=== PATIENT | female | born 1950 | race Caucasian/White ===

== ENCOUNTER → 2018-10-06 09:37 | Outpatient (CLI) | payer MEDICARE, OTHER, SELFPAY ==
[2018-10-06 10:11] LABS: Add Manual Diff / Slide Review NO; Basophils Absolute Auto 100 /uL (0-100); Basophils Percent Auto 0.6 % (0-2); Eosinophils Absolute Auto 400 /uL (0-450); Eosinophils Percent Auto 3.7 % (2-4); Hematocrit 40.5 % (36-46); Hemoglobin 14.1 g/dL (12.0-16.0); Lymphocytes Absolute Auto 3900 /uL (1100-4500); Lymphocytes Percent Auto 39.3 % (25-40); Mean Corpuscular HGB Conc 34.8 % (30-36); Mean Corpuscular Hemoglobin 31.2 PG (26-34); Mean Corpuscular Volume 89.8 fL (80-100); Monocytes Absolute Auto 600 /uL (0-900); Monocytes Percent Auto 5.9 % (3-14); Neutrophils Absolute Auto 5000 /uL (1500-7000); Neutrophils Percent Auto 50.5 % (50-75); Platelet Count 342 X10^3/uL (150-400); Red Blood Cell Count 4.51 X10^6/uL (4.0-5.2); Red Cell Distribution Width 13.9 % (11.6-14.8); White Blood Cell Count 9.9 X10^3/uL (4.5-11.0)
[2018-10-06 10:21] LABS: Hemoglobin A1C% w Est Avg Glu 6.4 % (4.0-6.0)
[2018-10-06 10:52] LABS: Alanine Aminotransferase 12 IU/L (9-52); Albumin Globulin Ratio 1.2 (1.0-2.8); Alkaline Phosphatase 76 U/L (38-126); Aspartate Aminotransferase 18 IU/L (14-36); BUN Creatinine Ratio 25.8 (6-22); Bilirubin Total 0.5 mg/dL (0.2-1.3); Blood Urea Nitrogen 31 mg/dL (7-17); Calcium 10.3 mg/dL (8.4-10.2); Carbon Dioxide 25 mmol/L (22-32); Chloride 103 mmol/L (98-107); Estimated Glomerular Filt Rate 45.1 mL/min (>60); Globulin 3.3 g/dL (1.7-4.1); Glucose 131 mg/dL (80-110); HEMOLYSIS < 15 (0-50); Sodium 139 mmol/L (137-145); Total Protein 7.3 g/dL (6.3-8.2)
== END ==
PROVIDERS: Visit Provider Physician Assistant
DX: E11.9 Type 2 diabetes mellitus without complications (principal); I10 Essential (primary) hypertension
CPT/HCPCS: 36415; 80053; 83036; 85025

== ENCOUNTER 2018-11-03 18:29 | Emergency (ER) | payer MEDICARE, OTHER, SELFPAY ==
[2018-11-03 18:55] VITALS: BP 172/102; PULSE 94; RESP 18; TEMP 36.3; O2SAT 99
--- NOTE | 2018-11-03 18:59 | ED.WEAKNESS ---
HPI - Weakness General Chief complaint: Weakness Stated complaint: VERY SLOW COLD AND HOT HASN'T HAD MEDICATION Time Seen by Provider: 11/03/18 18:44 Source: patient and family Mode of arrival: ambulatory Limitations: no limitations History of Present Illness HPI Narrative: 67-year-old female with history of hypertension and type 2 diabetes presents with her and a chief complaint of generalized weakness for the past few days. She denies any headache, blurred vision or trouble speech. She denies chest pain or shortness of breath. She has nausea but denies any vomiting. She has had increased frequency of urination and a dry mouth. She denies any change in her medications but states that up until recently she did not have access to some of her chronic meds. These medications were refilled at the walk-in clinic. MD Complaint: generalized weakness Onset (ago): day(s) Duration: constant Location: generalized Migration: none Relieving factors: none Exacerbating factors: none Associated symptoms: dysuria Related Data Previous Rx's Medication Instructions Recorded enalapril maleate 20 mg tablet 20 mg PO DAILY #60 tab 10/02/18 sertraline 100 mg tablet 100 mg PO DAILY #60 tab 10/02/18 exenatide microspheres 2 mg/0.65 2 mg SUBCUT Q7D #4 each 10/30/18 mL subcutaneous pen injector gabapentin 300 mg capsule 600 mg PO TID #90 cap 10/30/18 hydrochlorothiazide 25 mg tablet 25 mg PO DAILY #30 tab 10/30/18 sitagliptin 50 mg-metformin 1,000 1 tab PO BID #120 tab 10/30/18 mg tablet cephalexin [Keflex] 500 mg PO QID 7 Days #28 cap 11/03/18 Allergies Allergy/AdvReac Type Severity Reaction Status Date / Time No Known Drug Allergies Allergy Verified 10/08/18 12:21 Review of Systems Constitutional Constitutional: Denies chills, Denies fatigue, Denies fever(s), Denies frequent falls, Denies lethargy and Reports weakness Eyes Eyes: Denies change in vision, Denies eye discharge, Denies irritation and Denies loss of vision ENT Ears, Nose, Mouth, and Throat: Denies change in voice, Denies dizziness, Denies neck pain, Denies sore throat and Denies throat swelling Cardiovascular Cardiovascular: Denies chest pain, Denies irregular heart rhythm, Denies lightheadedness, Denies palpitations, Denies dyspnea, Denies dyspnea on exertion and Denies orthopnea Respiratory Respiratory: Denies cough, Denies dyspnea, Denies dyspnea on exertion and Denies wheezing Gastrointestinal Gastrointestinal: Denies abdominal pain, Denies change in bowel habits, Denies diarrhea, Denies nausea and Denies vomiting Genitourinary Genitourinary: Denies hematuria, Denies flank pain, Denies urinary incontinence and Reports urinary urgency Musculoskeletal Musculoskeletal: Denies back pain, Denies muscle weakness, Denies neck pain, Denies numbness and Denies tingling Integumentary/Breasts Skin/Breast: Denies pruritus, Denies erythema, Denies rash and Denies wounds Neurologic Neurologic: Denies behavioral changes, Denies confusion, Denies dizziness, Denies frequent falls, Denies loss of vision, Denies numbness, Denies tingling and Reports weakness Psychiatric Psychiatric: Denies anxiety, Denies behavioral changes, Denies confusion, Denies depression, Denies homicidal ideation and Denies suicidal ideation Endocrine Endocrine: Denies fatigue, Denies flushing and Denies palpitations Hematologic/Lymphatic Hematologic/Lymphatic: Denies easy bruising Allergic/Immunologic Allergic/Immunologic: Denies urticaria, Denies throat swelling and Denies wheezing FOR[facility]LY [facility] Medical History (Updated 11/03/18 @ 21:54 by Ilir Torres DO) Diabetes mellitus type 2 in obese (Acute) Hypertension (Acute) Social History Smoking Status: Never smoker Social History Smoking Status: Never smoker Exam Narrative Exam Narrative: GENERAL: [67] year old patient appears stated age. Well-nourished, well-developed patient, in mild distress. HEAD: Atraumatic. Normocephalic. EYES: Pupils equal round and reactive. Extraocular motions intact. No scleral icterus. No injection or drainage. ENT: Dry membranes Nose without bleeding, purulent drainage. Throat without erythema, tonsillar hypertrophy or exudate. Airway patent. NECK: Trachea midline. Non tender CARDIOVASCULAR: Regular rate and rhythm without murmurs, gallops, or rubs. RESPIRATORY: Clear to auscultation. Breath sounds equal bilaterally. No wheezes, rales, or rhonchi. GASTROINTESTINAL: Abdomen soft, non-tender, nondistended. EXTREMITIES: No edema or joint tenderness. BACK: Nontender without deformity or crepitance. No flank tenderness. NEURO: AOx3. SKIN: No rash or erythema of visible areas Initial Vital Signs Initial Vital Signs: Vital Signs Temperature 97.3 F L 11/03/18 18:55 Pulse Rate 94 H 11/03/18 18:55 Respiratory Rate 18 11/03/18 18:55 Blood Pressure 172/102 H 11/03/18 18:55 Pulse Oximetry 99 11/03/18 18:55 Course Orders Ordered: ED Orders 11/03/18 18:55 Complete Blood Count AUTO DIFF Stat Comprehensive Metabolic Panel Stat Troponin & CK Cardiac Panel Stat 11/03/18 19:09 EKG-12 Lead Stat 11/03/18 19:10 Venous Blood Gas Stat 11/03/18 19:11 XR chest 1V Stat 11/03/18 19:18 Venous Blood Gas Stat 11/03/18 19:25 Ammonia (NH3) Stat 11/03/18 20:06 Urinalysis and Microscopic Stat Urine Culture Stat Discontinued Medications Sodium Chloride (Normal Saline 0.9%) 1,000 mls @ 1,000 mls/hr IV BOLUS ONE Stop: 11/03/18 21:55 Last Infusion: 11/03/18 22:52 Dose: 0 mls/hr Documented by: Admin: 11/03/18 20:58 Dose: 1,000 mls/hr Documented by: JONO Ceftriaxone Sodium/Dextrose (Rocephin) 1 gm in 50 mls @ 100 mls/hr IV NOW ONE Stop: 11/03/18 21:25 Last Infusion: 11/03/18 21:30 Dose: 0 mls/hr Documented by: Admin: 11/03/18 20:58 Dose: 100 mls/hr Documented by: JONO Reevaluation(s) Reevaluation #1: patient feeling much better after fluids Vital Signs Vital signs: Vital Signs - 8 hr 11/03/18 18:55 11/03/18 20:00 11/03/18 22:15 Temperature 97.3 F L Pulse Rate 94 H 98 H 93 H Respiratory Rate 18 18 Blood Pressure 172/102 H Blood Pressure [Right Arm] 174/122 H 186/86 H Pulse Oximetry 99 100 MDM - Weakness Lab Data Result diagrams: 11/03/18 18:55 11/03/18 18:55 Labs: Lab Results 11/03/18 11/03/1811/03/19 Range/Units 18:55 18:55 19:18 WBC 11.3 H (4.5-11.0) X10^3/uL RBC 4.74 (4.0-5.2) X10^6/uL Hgb 14.7 (12.0-16.0) g/dL Hct 43.0 (36-46) % MCV 90.7 (80-100) fL MCH 31.1 (26-34) PG MCHC 34.3 (30-36) % RDW 13.7 (11.6-14.8) % Plt Count 385 (150-400) X10^3/uL Neut % (Auto) 71.8 (50-75) % Lymph % (Auto) 21.0 L (25-40) % Kimble % (Auto) 4.8 (3-14) % Eos % (Auto) 1.3 L (2-4) % Baso % (Auto) 1.1 (0-2) % Neut # (Auto) 8100 H (5599-4016) /uL Lymph # (Auto) 2400 (9922-8219) /uL Kimble # (Auto) 500 (0-900) /uL Eos # (Auto) 100 (0-450) /uL Baso # (Auto) 100 (0-100) /uL VBG pH 7.40 (7.33-7.43) VBG pCO2 36.6 L (45-50) mmHg VBG pO2 50 H (35-45) mmHg VBG HCO3 23 (23-28) mmol/L VBG Total CO2 24 (24-29) mmol/L VBG O2 Saturation 85 H (70-75) % VBG Base Excess -2.0 L (0-4) mmol/L Sodium 139 (137-145) mmol/L Potassium 4.4 (3.4-5.1) mmol/L Chloride 100 (98-107) mmol/L Carbon Dioxide 25 (22-32) mmol/L BUN 38 H (7-17) mg/dL Creatinine 1.40 H (0.52-1.04) mg/dL Estimated GFR 37.7 L (>60) mL/min BUN/Creatinine Ratio 27.1 H (6-22) Glucose 360 H (80-110) mg/dL Calcium 10.6 H (8.4-10.2) mg/dL Total Bilirubin 0.5 (0.2-1.3) mg/dL AST 21 (14-36) IU/L ALT 15 (9-52) IU/L Alkaline Phosphatase 81 (38-126) U/L Ammonia (9-30) umol/L Total Creatine Kinase 33 (30-135) U/L CK-MB (CK-2) TNP CK-MB (CK-2) Rel Index TNP Troponin I 0.014 (0.01-0.034) ng/mL Total Protein 8.4 H (6.3-8.2) g/dL Albumin 4.6 (3.5-5.0) g/dL Globulin 3.8 (1.7-4.1) g/dL Albumin/Globulin Ratio 1.2 (1.0-2.8) Urine Color Urine Appearance Urine pH (4.5-8.0) Ur Specific [place] (1.000-1.035) Urine Protein (Negative) Urine Glucose (UA) (Negative) g/dL Urine Ketones (NEGATIVE) Urine Occult Blood (Negative) Urine Nitrate (Negative) Urine Bilirubin (NEGATIVE) Urine Urobilinogen (0.2) E.U./dL Ur Leukocyte Esterase (NEGATIVE) Urine RBC (0-5/HPF) Urine WBC (0-5/HPF) Ur Squamous Epith Cells (0-5/HPF) Amorphous Sediment Urine Bacteria (None) Ur Culture Indicated? 11/03/18 11/03/18 Range/Units 19:25 20:06 WBC (4.5-11.0) X10^3/uL RBC (4.0-5.2) X10^6/uL Hgb (12.0-16.0) g/dL Hct (36-46) % MCV (80-100) fL MCH (26-34) PG MCHC (30-36) % RDW (11.6-14.8) % Plt Count (150-400) X10^3/uL Neut % (Auto) (50-75) % Lymph % (Auto) (25-40) % Kimble % (Auto) (3-14) % Eos % (Auto) (2-4) % Baso % (Auto) (0-2) % Neut # (Auto) (8683-2873) /uL Lymph # (Auto) (9641-4417) /uL Kimble # (Auto) (0-900) /uL Eos # (Auto) (0-450) /uL Baso # (Auto) (0-100) /uL VBG pH (7.33-7.43) VBG pCO2 (45-50) mmHg VBG pO2 (35-45) mmHg VBG HCO3 (23-28) mmol/L VBG Total CO2 (24-29) mmol/L VBG O2 Saturation (70-75) % VBG Base Excess (0-4) mmol/L Sodium (137-145) mmol/L Potassium (3.4-5.1) mmol/L Chloride (98-107) mmol/L Carbon Dioxide (22-32) mmol/L BUN (7-17) mg/dL Creatinine (0.52-1.04) mg/dL Estimated GFR (>60) mL/min BUN/Creatinine Ratio (6-22) Glucose (80-110) mg/dL Calcium (8.4-10.2) mg/dL Total Bilirubin (0.2-1.3) mg/dL AST (14-36) IU/L ALT (9-52) IU/L Alkaline Phosphatase (38-126) U/L Ammonia < 9.0 L (9-30) umol/L Total Creatine Kinase (30-135) U/L CK-MB (CK-2) CK-MB (CK-2) Rel Index Troponin I (0.01-0.034) ng/mL Total Protein (6.3-8.2) g/dL Albumin (3.5-5.0) g/dL Globulin (1.7-4.1) g/dL Albumin/Globulin Ratio (1.0-2.8) Urine Color Yellow Urine Appearance Clear Urine pH 5.0 (4.5-8.0) Ur Specific [place] 1.025 (1.000-1.035) Urine Protein 3+ H (Negative) Urine Glucose (UA) 2+ H (Negative) g/dL Urine Ketones Trace H (NEGATIVE) Urine Occult Blood 1+ H (Negative) Urine Nitrate Negative (Negative) Urine Bilirubin Negative (NEGATIVE) Urine Urobilinogen 0.2 (0.2) E.U./dL Ur Leukocyte Esterase Negative (NEGATIVE) Urine RBC 0-1/hpf (0-5/HPF) Urine WBC 5-10/hpf H (0-5/HPF) Ur Squamous Epith Cells 1-5 /hpf (0-5/HPF) Amorphous Sediment 1+ Urine Bacteria Few (2-10) H (None) Ur Culture Indicated? Specimen cultured Point of Care Testing Glucose POC 314 Discharge Plan Departure Patient Disposition: Home Clinical Impression: Acute UTI, Dehydration Discharge Date/Time: 11/03/18 22:59 Instructions: DI for Dehydration -- Adult, DI for Urinary Tract Infection (UTI) Activity Restrictions/Additional Instructions: *You have been diagnosed with [acute urinary tract infection with dehydration] *What to do: *Take medications as directed *Follow up with your primary care provider in 2-3 days, call for an appointment. Let them know you were seen in the Emergency Department and that we ask that you be seen in follow up *Return to ER if you should have any new, worsening or concerning symptoms Prescriptions: New cephalexin [Keflex] 500 mg capsule 500 mg PO QID 7 Days Qty: 28 RF: 0 No Action enalapril maleate 20 mg tablet 20 mg PO DAILY Qty: 60 RF: 0 sertraline 100 mg tablet 100 mg PO DAILY Qty: 60 RF: 0 Bydureon 2 mg/0.65 mL pen injector 2 mg SUBCUT Q7D Qty: 4 RF: 1 gabapentin 300 mg capsule 600 mg PO TID Qty: 90 RF: 0 hydrochlorothiazide 25 mg tablet 25 mg PO DAILY Qty: 30 RF: 0 Janumet 50-1,000 mg tablet 1 tab PO BID Qty: 120 RF: 0
[2018-11-03 19:05] LABS: Add Manual Diff / Slide Review NO; Basophils Absolute Auto 100 /uL (0-100); Basophils Percent Auto 1.1 % (0-2); Eosinophils Absolute Auto 100 /uL (0-450); Eosinophils Percent Auto 1.3 % (2-4); Hemoglobin 14.7 g/dL (12.0-16.0); Lymphocytes Absolute Auto 2400 /uL (1100-4500); Mean Corpuscular HGB Conc 34.3 % (30-36); Mean Corpuscular Hemoglobin 31.1 PG (26-34); Mean Corpuscular Volume 90.7 fL (80-100); Monocytes Absolute Auto 500 /uL (0-900); Monocytes Percent Auto 4.8 % (3-14); Neutrophils Absolute Auto 8100 /uL (1500-7000); Neutrophils Percent Auto 71.8 % (50-75); Platelet Count 385 X10^3/uL (150-400); Red Blood Cell Count 4.74 X10^6/uL (4.0-5.2); Red Cell Distribution Width 13.7 % (11.6-14.8); White Blood Cell Count 11.3 X10^3/uL (4.5-11.0)
--- NOTE | 2018-11-03 19:11 | DI.RAD.S_ITS ---
PROCEDURE: XR CHEST 1V INDICATIONS: weakness TECHNIQUE: One view of the chest was acquired. COMPARISON: None. FINDINGS: Surgical changes and devices: None. Lungs and pleura: Lungs are clear. No pleural effusions or pneumothorax. Mediastinum: Mediastinal contours appear normal. Heart size is normal. Bones and chest wall: No suspicious bony lesions. Overlying soft tissues appear unremarkable. IMPRESSION: No acute cardiopulmonary findings. Dictated by: Cee Salcedo M.D. on 11/03/2018 at 19:32 Approved by: Cee Salcedo M.D. on 11/03/2018 at 19:32
[2018-11-03 19:17] LABS: Alanine Aminotransferase 15 IU/L (9-52); Albumin 4.6 g/dL (3.5-5.0); Albumin Globulin Ratio 1.2 (1.0-2.8); Alkaline Phosphatase 81 U/L (38-126); Aspartate Aminotransferase 21 IU/L (14-36); BUN Creatinine Ratio 27.1 (6-22); Bilirubin Total 0.5 mg/dL (0.2-1.3); Blood Urea Nitrogen 38 mg/dL (7-17); Calcium 10.6 mg/dL (8.4-10.2); Carbon Dioxide 25 mmol/L (22-32); Chloride 100 mmol/L (98-107); Creatine Kinase 33 U/L (30-135); Estimated Glomerular Filt Rate 37.7 mL/min (>60); Globulin 3.8 g/dL (1.7-4.1); Glucose 360 mg/dL (80-110); HEMOLYSIS 17 (0-50); Potassium 4.4 mmol/L (3.4-5.1); Sodium 139 mmol/L (137-145); Total Protein 8.4 g/dL (6.3-8.2)
[2018-11-03 19:28] LABS: Troponin I 0.014 ng/mL (0.01-0.034)
[2018-11-03 19:36] LABS: HCO3 VBG 23 mmol/L (23-28); PCO2 VBG 36.6 mmHg (45-50); PO2 VBG 50 mmHg (35-45); Total CO2 VBG 24 mmol/L (24-29)
[2018-11-03 19:52] LABS: Ammonia (NH3) < 9.0 umol/L (9-30)
[2018-11-03 19:53] LABS: Oxygen Saturation VBG 85 % (70-75)
[2018-11-03 20:00] VITALS: BP 174/122; PULSE 98
[2018-11-03 20:20] LABS: Appearance Urine UA CLEAR; Bilirubin Urine UA NEGATIVE (NEGATIVE); Color Urine UA YELLOW; Glucose Urine UA 2+ g/dL (Negative); Ketones Urine UA TRACE (NEGATIVE); Leukocyte Esterase Urine UA NEGATIVE (NEGATIVE); Nitrite Urine UA NEGATIVE (Negative); Occult Blood Urine UA 1+ (Negative); Protein Urine UA 3+ (Negative); Specific Gravity Urine UA 1.025 (1.000-1.035); Urobilinogen Urine UA 0.2 E.U./dL (0.2)
[2018-11-03 20:32] LABS: RBC Urine 0-1/HPF (0-5/HPF); Squamous Epithelial Cell Urine 1-5 /HPF (0-5/HPF); WBC Urine 5-10/HPF (0-5/HPF)
[2018-11-03 20:33] LABS: Amorphous Sediment Urine 1+; Bacteria Urine Few (2-10); Culture Indicated Urine Specimen Cultured
[2018-11-03] MEDS: CEFTRIAXONE 1 GM/50 ML FROZ.PIGGY IV (20:58)
[2018-11-03] MEDS: SODIUM CHLORIDE 0.9% 1,000 ML 1000 ML IV (20:58)
[2018-11-03 22:15] VITALS: BP 186/86; PULSE 93; RESP 18; O2SAT 100
== END 2018-11-03 22:59 | disposition home or self-care (01) ==
PROVIDERS: Emergency Provider Emergency Medicine
DX: N39.0 Urinary tract infection, site not specified (principal); E86.0 Dehydration
CPT/HCPCS: 36415; 36591; 71045; 80053; 81001; 82140; 82550; 82805; 82962; 84484; 85025; 87077; 87086; 87186; 93005; 96361; 96365; 99283; 99285

== ENCOUNTER → 2019-02-06 12:44 | Outpatient (CLI) | payer MEDICARE, OTHER, SELFPAY ==
--- NOTE | 2019-02-06 12:47 | DI.RAD.S_ITS ---
PROCEDURE: XR KNEE LT 3V INDICATIONS: knee pain TECHNIQUE: 3 views of the knee were acquired. COMPARISON: [facility], CR, XR KNEE RT 3V, 02/06/2019, 13:00. FINDINGS: Bones: No fractures or dislocations. There is qrzr-[id number]-[id number] joint space narrowing in the medial compartment with mild subchondral sclerosis. Mild narrowing is also noted in the lateral patellofemoral compartment. There is tricompartmental osteophytosis. No suspicious bony lesions. Soft tissues: No joint effusion. No suspicious soft tissue calcifications. IMPRESSION: 1. Tricompartment osteoarthritic changes including bwiw-cn-ynkfwzjy narrowing in the medial compartment. Dictated by: Sy Willson M.D. on 02/06/2019 at 13:13 Approved by: Sy Willson M.D. on 02/06/2019 at 13:20
--- NOTE | 2019-02-06 12:47 | DI.RAD.S_ITS ---
PROCEDURE: XR KNEE RT 3V INDICATIONS: knee pain TECHNIQUE: 3 views of the knee were acquired. COMPARISON: None. FINDINGS: Bones: No fractures or dislocations. No suspicious bony lesions. There is mxil-po-gwttpafe joint space narrowing in the medial compartment with subchondral sclerosis. Mild narrowing is demonstrated in the lateral patellofemoral compartment. There is multi-compartment osteophytosis. Soft tissues: There is a small joint effusion. No suspicious soft tissue calcifications. IMPRESSION: 1. Tricompartmental osteoarthritic changes including rdhn-wt-jvkvrnku joint space narrowing in the medial compartment. Dictated by: Sy Willson M.D. on 02/06/2019 at 13:11 Approved by: Sy Willson M.D. on 02/06/2019 at 13:13
[2019-02-06 13:23] LABS: Hemoglobin A1C% w Est Avg Glu 6.6 % (4.0-6.0)
[2019-02-06 13:31] LABS: Add Manual Diff / Slide Review NO; Basophils Absolute Auto 100 /uL (0-100); Basophils Percent Auto 0.6 % (0-2); Eosinophils Absolute Auto 200 /uL (0-450); Eosinophils Percent Auto 1.8 % (2-4); Hematocrit 39.4 % (36-46); Hemoglobin 13.5 g/dL (12.0-16.0); Lymphocytes Absolute Auto 2900 /uL (1100-4500); Lymphocytes Percent Auto 33.1 % (25-40); Mean Corpuscular HGB Conc 34.3 % (30-36); Mean Corpuscular Hemoglobin 31.3 PG (26-34); Mean Corpuscular Volume 91.3 fL (80-100); Monocytes Absolute Auto 500 /uL (0-900); Monocytes Percent Auto 5.7 % (3-14); Neutrophils Absolute Auto 5100 /uL (1500-7000); Neutrophils Percent Auto 58.8 % (50-75); Platelet Count 334 X10^3/uL (150-400); Red Blood Cell Count 4.31 X10^6/uL (4.0-5.2); Red Cell Distribution Width 13.8 % (11.6-14.8); White Blood Cell Count 8.7 X10^3/uL (4.5-11.0)
[2019-02-06 13:42] LABS: Alanine Aminotransferase 18 IU/L (<35); Albumin 4.4 g/dL (3.5-5.0); Albumin Globulin Ratio 1.3 (1.0-2.8); Alkaline Phosphatase 52 U/L (38-126); Aspartate Aminotransferase 25 IU/L (14-36); BUN Creatinine Ratio 25.4 (6-22); Bilirubin Total 0.5 mg/dL (0.2-1.3); Blood Urea Nitrogen 33 mg/dL (7-17); Calcium 9.5 mg/dL (8.4-10.2); Carbon Dioxide 23 mmol/L (22-32); Chloride 104 mmol/L (98-107); Cholesterol 201 mg/dL (140-199); Globulin 3.3 g/dL (1.7-4.1); Glucose 131 mg/dL (80-110); HDL Cholesterol 29 mg/dL (40-60); HEMOLYSIS < 15 (0-50); Lipase 477 U/L (23-300); Potassium 3.8 mmol/L (3.4-5.1); Sodium 139 mmol/L (137-145); Total Protein 7.7 g/dL (6.3-8.2); Triglycerides 437 mg/dL (35-150)
[2019-02-06 14:12] LABS: TSH w/ Reflex to FT4 2.51 uIU/mL (0.47-4.68)
== END ==
PROVIDERS: PCP Family Medicine; Visit Provider Family Medicine
DX: Z13.220 Encounter for screening for lipoid disorders (principal); G89.29 Other chronic pain; M25.561 Pain in right knee; M25.562 Pain in left knee; E11.9 Type 2 diabetes mellitus without complications; I10 Essential (primary) hypertension; Z13.29 Encounter for screening for other suspected endocrine disorder; E55.9 Vitamin D deficiency, unspecified
CPT/HCPCS: 36415; 73562; 80053; 80061; 82306; 83036; 83690; 84443; 85025

== ENCOUNTER → 2019-02-23 06:31 | Outpatient (CLI) | payer MEDICARE, OTHER, SELFPAY ==
--- NOTE | 2019-02-23 06:33 | DI.MRI.S_ITS ---
PROCEDURE: MR KNEE RT WO CON INDICATIONS: bilateral knee pain TECHNIQUE: Noncontrast sagittal PD fast spin echo and T2 fast spin echo with fat saturation, sagittal 3-D FLASH with fat saturation; coronal T1 spin echo and PD fast spin echo with fat saturation, and axial PD fast spin echo with fat saturation through the knee. COMPARISON: [facility], CR, XR KNEE RT 3V, 02/06/2019, 13:00. [facility], MR, MR KNEE LT WO CON, 02/23/2019, 6:44. FINDINGS: Image quality: Diagnostic. Menisci: There is moderate to severe degenerative tearing of the medial meniscus including extensive degenerative tearing in the body. Mild partial tearing also demonstrated within the anterior and posterior meniscal root ligaments. There is associated mild peripheral extrusion of the medial meniscus. The lateral meniscus demonstrates moderate degenerative tearing within the body and posterior horn involving the free edge and inferior articular surface. There is also mild degenerative partial tearing of the meniscal root ligaments. Cruciate ligaments: The anterior and posterior cruciate ligaments appear intact. Medial structures: The medial collateral ligament appears intact. The semimembranosus tendon insertions and meniscocapsular junction appear intact. Visualized portions of the pes anserinus tendons appear intact without associated bursal fluid collections. Lateral structures: There is mild partial tearing of the fibular collateral ligament proximally. The long and short heads of the biceps femoris tendon appear intact. The popliteus tendon appears intact. Iliotibial band appears normal. Anterior structures: There is mild tendinopathy in the proximal patellar tendon. The quadriceps tendon appears intact. Patellar alignment is normal. No femoral trochlear dysplasia or ventral trochlear prominence. No edema in the infrapatellar fat pad. Bones and cartilage: No bone marrow contusions or fractures. There is tricompartmental osteophytosis. Severe cartilage thinning is demonstrated in the medial compartment with areas of apparent full-thickness cartilage loss. There is associated subchondral edema and mild subchondral cystic change. In the lateral compartment, there is mild superficial chondral fraying. In the patellofemoral compartment comment there is moderate cartilage thinning with chondral fissuring associated mild subchondral edema along the lateral patellar facet. Joint space: There is a small joint effusion. There is a small to moderate sized Lim's cyst with multiple small internal filling defects compatible with joint bodies or synovitis. These measure up to approximately 0.9 cm. Normal appearing synovial plicae are incidentally noted. IMPRESSION: 1. Moderate to severe degenerative tearing of the medial meniscus including mild partial tearing of the meniscal root ligaments with associated mild peripheral extrusion. 2. Moderate degenerative tearing in the body and posterior horn of the lateral meniscus as described. 3. Tricompartmental osteoarthritic changes including severe chondral degeneration in the medial compartment. 4. Small joint effusion and small to moderate size Lim's cyst which demonstrates filling defects compatible with joint bodies or synovitis. 5. Mild partial tearing of the proximal fibular collateral ligament. 6. Mild tendinopathy of the proximal patellar tendon. Dictated by: yS Willson M.D. on 02/23/2019 at 11:03 Approved by: Sy Willson M.D. on 02/23/2019 at 11:16
--- NOTE | 2019-02-23 06:41 | DI.MRI.S_ITS ---
PROCEDURE: MR KNEE LT WO CON INDICATIONS: bilateral knee pain TECHNIQUE: Noncontrast sagittal PD fast spin echo and T2 fast spin echo with fat saturation, sagittal 3-D FLASH with fat saturation; coronal T1 spin echo and PD fast spin echo with fat saturation, and axial PD fast spin echo with fat saturation through the knee. COMPARISON: [facility], CR, XR KNEE LT 3V, 02/06/2019, 13:00. FINDINGS: Image quality: Excellent. Menisci: There is moderate to severe degenerative tearing of the medial meniscus including high-grade degenerative partial tearing of the anterior meniscal root ligament. There is associated mild peripheral extrusion of the medial meniscus. There is mild degenerative signal within the lateral meniscus extending to the free edge and body compatible with mild degenerative radial tearing. Cruciate ligaments: The anterior and posterior cruciate ligaments appear intact. Medial structures: The medial collateral ligament appears intact. The semimembranosus tendon insertions and meniscocapsular junction appear intact. Visualized portions of the pes anserinus tendons appear intact without associated bursal fluid collections. Lateral structures: The lateral collateral ligament, long and short heads of the biceps femoris tendon appear intact. The popliteus tendon appears intact. Iliotibial band appears normal. Anterior structures: The quadriceps and patellar tendons appear intact. Patellar alignment is normal. No femoral trochlear dysplasia or ventral trochlear prominence. No edema in the infrapatellar fat pad. Bones and cartilage: No bone marrow contusions or fractures. There is tricompartmental osteophytosis. There is severe cartilage thinning in the medial compartment with areas of apparent full-thickness cartilage loss. There is associated subchondral edema and cystic change along the medial femoral condyle and medial tibial plateau. In the lateral compartment, there is mild superficial chondral fraying. In the patellofemoral compartment, there is mild cartilage thinning with superficial chondral fissuring along the lateral patellar facet. Joint space: There is a minimal joint effusion. There is a small Lim's cyst. Normal appearing synovial plicae are incidentally noted. IMPRESSION: 1. Moderate to severe degenerative tearing of the medial meniscus including a high grade degenerative partial tear of the anterior meniscal root ligament. There is minimal degenerative tearing along the free edge of the lateral meniscus. 2. Tricompartmental osteoarthritic changes including severe chondral degeneration in the medial compartment. 3. Small Lim's cyst. Dictated by: Sy Willson M.D. on 02/23/2019 at 10:47 Approved by: Sy Willson M.D. on 02/23/2019 at 11:00
== END ==
PROVIDERS: PCP Family Medicine; Visit Provider Family Medicine
DX: M17.0 Bilateral primary osteoarthritis of knee (principal); M25.561 Pain in right knee; M25.562 Pain in left knee; M23.232 Derangement of other medial meniscus due to old tear or injury, left knee; M23.231 Derangement of other medial meniscus due to old tear or injury, right knee; M23.262 Derangement of other lateral meniscus due to old tear or injury, left knee; M23.251 Derangement of posterior horn of lateral meniscus due to old tear or injury, right knee; M71.22 Synovial cyst of popliteal space [Baker], left knee; M71.21 Synovial cyst of popliteal space [Baker], right knee
CPT/HCPCS: 73721

== ENCOUNTER → 2019-07-08 16:45 | Outpatient (CLI) | payer MEDICARE, OTHER, SELFPAY ==
[2019-07-08 17:05] LABS: RBC Urine None Seen (0-5/HPF)
[2019-07-08 17:39] LABS: Bilirubin Urine UA NEGATIVE (NEGATIVE); Color Urine UA YELLOW; Glucose Urine UA NEGATIVE (Negative); Ketones Urine UA NEGATIVE (NEGATIVE); Leukocyte Esterase Urine UA 1+ (NEGATIVE); Nitrite Urine UA NEGATIVE (Negative); Occult Blood Urine UA 1+ (Negative); Protein Urine UA 3+ (Negative); Specific Gravity Urine UA 1.025 (1.000-1.035); Urobilinogen Urine UA 0.2 E.U./dL (0.2)
[2019-07-08 17:52] LABS: Appearance Urine UA SL CLOUDY
[2019-07-08 17:58] LABS: Bacteria Urine Many (>30); Culture Indicated Urine Specimen Cultured; Squamous Epithelial Cell Urine 0-1 /HPF (0-5/HPF); WBC Urine 30-100/HPF (0-5/HPF)
== END ==
PROVIDERS: PCP Family Medicine; Referring Provider Family Medicine; Visit Provider Family Medicine
DX: R30.0 Dysuria (principal); R35.0 Frequency of micturition
CPT/HCPCS: 81001; 87077; 87086; 87186

== ENCOUNTER → 2019-07-27 15:31 | Outpatient (CLI) | payer MEDICARE, OTHER, SELFPAY ==
[2019-07-28 14:32] LABS: COVID19 Sendout Not Detected (Not Detect)
== END ==
PROVIDERS: PCP Family Medicine; Visit Provider Registered Nurse
DX: Z11.59 Encounter for screening for other viral diseases (principal); Z01.818 Encounter for other preprocedural examination
CPT/HCPCS: 87635

== ENCOUNTER → 2019-07-27 15:56 | Outpatient (CLI) | payer MEDICARE, OTHER, SELFPAY ==
[2019-07-27 16:07] LABS: Bacteria Urine None Seen; RBC Urine None Seen (0-5/HPF)
[2019-07-27 16:52] LABS: BUN Creatinine Ratio 22.6 (6-22); Blood Urea Nitrogen 37 mg/dL (7-17); Carbon Dioxide 24 mmol/L (22-32); Chloride 103 mmol/L (98-107); Estimated Glomerular Filt Rate 31.3 mL/min (>60); Glucose 290 mg/dL (80-110); HEMOLYSIS < 15 (0-50); Potassium 4.5 mmol/L (3.4-5.1); Sodium 139 mmol/L (137-145)
[2019-07-27 16:53] LABS: Hemoglobin A1C% w Est Avg Glu 7.4 % (4.0-6.0)
[2019-07-27 16:54] LABS: Add Manual Diff / Slide Review NO; Basophils Absolute Auto 0 /uL (0-100); Basophils Percent Auto 0.5 % (0-2); Eosinophils Absolute Auto 100 /uL (0-450); Eosinophils Percent Auto 1.7 % (2-4); Hematocrit 37.3 % (36-46); Lymphocytes Absolute Auto 3000 /uL (1100-4500); Lymphocytes Percent Auto 37.3 % (25-40); Mean Corpuscular HGB Conc 34.8 % (30-36); Mean Corpuscular Hemoglobin 32.1 PG (26-34); Mean Corpuscular Volume 92.2 fL (80-100); Monocytes Absolute Auto 500 /uL (0-900); Monocytes Percent Auto 6.1 % (3-14); Neutrophils Absolute Auto 4400 /uL (1500-7000); Neutrophils Percent Auto 54.4 % (50-75); Platelet Count 327 X10^3/uL (150-400); Red Blood Cell Count 4.05 X10^6/uL (4.0-5.2); Red Cell Distribution Width 13.7 % (11.6-14.8)
[2019-07-28 08:09] LABS: Appearance Urine UA CLEAR; Bilirubin Urine UA NEGATIVE (NEGATIVE); Color Urine UA YELLOW; Glucose Urine UA NEGATIVE (Negative); Ketones Urine UA NEGATIVE (NEGATIVE); Leukocyte Esterase Urine UA 1+ (NEGATIVE); Nitrite Urine UA NEGATIVE (Negative); Occult Blood Urine UA TRACE-INTACT (Negative); Protein Urine UA 2+ (Negative); Specific Gravity Urine UA 1.015 (1.000-1.035); Urobilinogen Urine UA 0.2 E.U./dL (0.2)
[2019-07-28 09:14] LABS: Culture Indicated Urine Specimen Cultured; Squamous Epithelial Cell Urine 1-5 /HPF (0-5/HPF); WBC Urine 5-10/HPF (0-5/HPF)
== END ==
PROVIDERS: PCP Family Medicine; Referring Provider Orthopaedic Surgery; Visit Provider Orthopaedic Surgery
DX: Z11.59 Encounter for screening for other viral diseases (principal); Z01.812 Encounter for preprocedural laboratory examination; Z01.818 Encounter for other preprocedural examination; R73.9 Hyperglycemia, unspecified; N39.0 Urinary tract infection, site not specified
CPT/HCPCS: 36415; 80048; 81001; 83036; 85025; 87086; 87635; C9290; J0690

== ENCOUNTER 2019-07-29 06:33 | Day surgery (SDC) | payer MEDICARE, OTHER, SELFPAY ==
[2019-07-27 13:17] VITALS: BMI 40.8
[2019-07-28 11:29] VITALS: BMI 40.8
[2019-07-29] VITALS (15 sets, daily range): BP systolic 122–156; BP diastolic 65–85; PULSE 77–95; RESP 11–18; TEMP 36.5–37.5; O2SAT 90–98; BMI 39.6
--- NOTE | 2019-07-29 07:41 | P.OP.PRE_ITS ---
Pre-operative Note COVID-19 COVID-19 status: Negative Interval Note History & Physical reviewed/Exam performed by Physician: Yes Changes to H&P: No H&P completed within 30 days and has changed as indicated here:: She notes that she has had no new medical problems. No problems with her heart or lungs. Her blood sugars have been adequately controlled. Her lungs are clear cor regular rate and rhythm abdomen benign skin over the left knee is intact and range of motion is 0-125 degrees. Impression is severe left knee osteoarthritis plan is for left total knee arthroplasty PAR discussed in detail. Her covid test is negative. She is a [employer]ast[employer]. Her H&P was updated yesterday.
[2019-07-29] MEDS: LACTATED RINGERS 1,000 ML 42 ML IV ×2 (07:45→09:22)
--- NOTE | 2019-07-29 07:52 | DI.RAD.S_ITS ---
PROCEDURE: XR KNEE LT 1TO2V INDICATIONS: postop TECHNIQUE: 2 view(s) of the knee acquired. COMPARISON: [facility], [place], XR KNEE STANDING BILATERAL, 04/14/2019, 8:16. FINDINGS: Bones: Patient is status post knee joint arthroplasty. Hardware components are in expected positions. Visualized bony structures are intact. Soft tissues: Overlying postoperative changes are noted. IMPRESSION: Left knee arthroplasty with prosthesis in anatomic alignment. Dictated by: Marvin Del Valle M.D. on 07/29/2019 at 11:29 Approved by: Marvin Del Valle M.D. on 07/29/2019 at 11:29
[2019-07-29] MEDS: VANCOMYCIN 1,000 MG/200 ML PIGGYBACK 200 MG IV (07:59)
[2019-07-29] MEDS: CEFAZOLIN 2 GM/100 ML FROZ.PIGGY IV ×2 (08:06→16:46)
[2019-07-29] MEDS: TRANEXAMIC ACID 1,000 MG VIAL 1000 MG INJ ×2 (08:12→09:42)
--- NOTE | 2019-07-29 08:34 | SUR.OPER ---
Supine on padded OR bed. Pillow under head, arms secured on padded armboards <90 degree abduction. Safety belt across torso. Non-operative leg secured with tape over blanket over lower leg. Operative leg secured in [employer]/Sami positioner. Foam padded brace at thigh of operative leg.
[2019-07-29] MEDS: BUPIVACAINE 0.25% W/ EPI 30 ML VIAL 60 ML INJ (08:45)
[2019-07-29] MEDS: BUPIVACAINE LIPOSOME 266 MG/20 ML VIAL INJ (08:46)
[2019-07-29] MEDS: SODIUM CHLORIDE IRRIG SOLUTION 250 ML, POVIDONE-IODINE SPONGE STICKS 1 APPLIC IRR (08:47)
--- NOTE | 2019-07-29 10:02 | P.OP_ITS ---
Operative Date/Time/Diagnoses Date of procedure: 07/29/19 Time of procedure: 08:02 Pre-op diagnosis: left knee oa Post-op diagnosis: same Procedure & Clinicians Procedure: Left total knee arthroplasty Same procedure as scheduled: Yes Indications: The patient has had progressively worsening left knee pain with radiographic changes consistent with arthritis. Non-operative management has failed and the patient has requested total knee replacement. The risks, benefits and alternatives to surgery were discussed with the patient prior to proceeding. Risks discussed included, but were not limited to, failure to relieve pain, stiffness, infection, nerve damage, deep venous thrombosis, pulmonary embolism, stroke, coma, heart attack, permanent paralysis and , as well as the potential need for eventual revision of the prosthetic. Surgeon: Danii Veloz Supervisor Finishing: Norberto Stern Anesthesia Type: General and Spinal Operative Notes Findings: Severe left knee osteoarthritis, good stability Closure Type: primary Specimen(s): none sent Prosthetic devices, grafts, tissues, transplants, or devices: Veloz and Nephew Susan BCS 2 size 4 femur, size 4 tibia, +11 poly, 35 by 7-1/2 mm patella Estimated Blood Loss (mL): 200 Blood products transfused: none Tourniquet time (min): 77 Procedure in detail: The patient was seen in the pre-operative area, where the patient identified the left knee as the operative site and this was marked with my initials. The patient received pre-operative antibiotics, and was taken to the operating room and placed on the operative table in the supine position. After satisfactory anesthesia, a time lock expert out was performed. The left leg was encircled with a tourniquet about the proximal thigh, and the leg was prepared from the toes to the tourniquet with ChloroPrep in the usual fashion and draped through sterile drapes. The leg was elevated and exsanguinated with Eschmark bandage and the tourniquet inflated to [250] mmHg pressure. The knee was approached through an approximately 18 cm incision centered over the patella and carried into the knee through a medial parapatellar arthrotomy. A portion of the medial and lateral meniscus was resected. Soft tissue was carefully mobilized around the patella the patella was measured with a caliper. Bone was resected from the patella and the patellar height was reconstituted with up an appropriate sized patellar component. A cover was then placed on the patella. A small amount of additional medial and lateral meniscus was resected. The distal femur was cut at 5?. A [+2] cut was used. It looked like an appropriate distal femoral cut and the cut was made without difficulty. An extramedullary guide was used for the tibial cut. 10 mm was resected off the least affected side.The tibia was prepared. The rotation was assessed. The patient was placed in extension residual medial and lateral meniscus as well as any residual bone was carefully resected. 2 mm additional tibia was resected. Hemostasis was achieved especially posteriorly. Additional local was injected into the posterior capsule. The extension gap was assessed and additional releases for gap balancing were performed as necessary. It was checked with the gap keller machine operator. The femoral component was trial was placed and the notch was finished. The rotation was assessed and the appropriate size femoral guide was placed on the distal femur and finishing cuts were made. There is no evidence of notching. The anterior, posterior and chamfer cuts were then made. The posterior osteophytes and soft tissues were then removed. The posterior capsule was injected with part of a mixture of 60 ml 0.25% Marcaine mixed with 20 ml Exparel for post operative pain control. The remainder of this mixture was injected into the capsule and subcutaneous tissues during cement curing.l tibial and femoral components were then placed and the knee placed through a range of motion. Range of motion was [0-130], with good stability throughout the range. The trials were then removed, and the tibia was finished. The bone was prepared with pulsatile lavage, and dried with a sponge. Cement was applied and the final prosthetics placed. Excess cement was removed during and after cement curing. A brief Betadine soak was performed. After confirming there was no extruded cement posteriorly, the final tibial insert was placed. The knee was copiously irrigated and the tourniquet deflated. Hemostasis was obtained with the [Aquamantys system]. A drain was placed and brought out superolaterally. The capsule was closed with interrupted nonabsorbable suture. The subcutaneous layer was closed with barbed sutures, and the skin with a running 3-0 V-Lock suture and Surgical glue. An Aquacel Ag dressing was applied and the patient was taken to recovery having tolerated the procedure well. Complications: none Post-operative Condition: stable Disposition: Acute Care Plan for aftercare: The patient will be maintained on a standard total knee replacement protocol with weight bearing as tolerated. The patient will receive aspirin and sequential compression devices for DVT prophylaxis. The patient will be discharged home when safe for the home environment.
[2019-07-29] MEDS: LACTATED RINGERS 1,000 ML 100 ML IV ×2 (12:48→22:17)
--- NOTE | 2019-07-29 14:44 | PT.IIE ---
Current Diagnoses Unilateral primary osteoarthritis, left knee (07/29/19) Surgery Performed Operation Date: 07/29/19 07:45 Actual Procedures p Total Knee Arthroplasty(Left) - Danii Veloz MD Surgical History (Last Updated 11/17/18 @ 21:20 by Aurora Don) Anesthesia (Resolved) History of cholecystectomy (Resolved ~06/1983) Medical History (Last Updated 03/06/19 @ 12:25 by Brown Shen DO) Bilateral chronic knee pain (Acute) Bilateral primary osteoarthritis of knee (Acute) Chicken pox (Resolved) Diabetes (Acute) Diabetes mellitus type 2 in obese (Acute) Elevated lipase (Acute) Heavy menstrual period (Resolved) Hypertension (Acute) Hypertriglyceridemia (Acute) Low HDL (under 40) (Acute) Measles (Resolved) Osteoarthritis (Inactive) Painful menstrual periods (Resolved) Plantar warts (Acute) Polymyalgia rheumatica (Inactive) Rheumatoid arthritis (Inactive) Vitamin deficiency (Acute) Physical Therapy Inpatient Evaluation/Re-Eval M1 PT/OT-IP Prior Functional Status Start: 07/29/19 15:31 Freq: NEEDED Status: Active Protocol: Document 07/29/19 14:44 AB (Rec: 07/29/19 15:47 AB [id number]) Medical Review Prior Functional Status Medical History Reviewed Yes Communication able to make needs known Mobility and Gait pt stated that she is modified independent with all mobilities and ambulation without AD indoors but holds on to [place] of her home. stated that she occasionally uses a SPC indoors but uses a w/c for outdoor mobility. Social History Household Members spouse Living Arrangements RV Number of Floors (Floors) One Floor Number of Stairs To Enter/Railing? 3 steps to enter with L handle on side of door and has R side bookcases Home Environment Standard Height Toilet Home Equipment Straight Cane,Manual Wheelchair,Hand Held Shower Additional Social History Comment pt stated that she lives in a small camper and a FWW will not fit in. stated that lozano and furniture are close enough for her to hold on for support. pt uses a gallon tub/container as a shower chair. M2 PT-IP Current Condition Start: 07/29/19 15:31 Freq: NEEDED Status: Active Protocol: Document 07/29/19 14:44 AB (Rec: 07/29/19 15:47 AB [id number]) Physical Therapy Current Condition Current Condition Evaluation Date 07/29/19 Treatment Diagnosis s/p L TKA; difficulty in walking Onset Date 07/29/19 Weight Bearing Status Weight Bearing Status Weight Bear as Tolerated Allowed Weight Bearing Amount (enter % LLE WBAT or #) (%) M3 PT-IP Subjective Start: 07/29/19 15:31 Freq: NEEDED Status: Active Protocol: Document 07/29/19 14:44 AB (Rec: 07/29/19 15:47 AB [id number]) Subjective Physical Therapy Visit Type Type Initial Evaluation Visit Start Time 14:44 Visit Stop Time 15:20 Total Visit Minutes 36 Number of REAL ESTATE SALESPERSON Visits 0 Physical Therapy Visit Comments Patient Comments pt agreeable to do PT Therapy Pain Assessment Pain When Pain Assessed During Mobility Pain Present Pain Present Pain Reported Location Left Knee Intensity 2 Scale Used Numeric (1 - 10) Pain Management Techniques Apply Cold,Re-positioning, Timing of Activity with Medications M4 PT-IP Mobility and Gait Start: 07/29/19 15:31 Freq: NEEDED Status: Active Protocol: Document 07/29/19 14:44 AB (Rec: 07/29/19 15:47 AB [id number]) PT-Bed Mobility Assessment Supine to Sit Supine to Sit Standby Assistance,Bedrails Scooting Scooting to Edge of Bed Standby Assistance PT-Transfer Assessment Sit to and From Stand Sit to and from Stand Contact Guard Assistance,1 Person Assistance,Use of Upper Extremities Equipment Transfer Assistive Device Gait Belt,Front Wheeled Walker Orthotic/Prosthetic Devices or Brace: No Transfers Transfer Destination Toilet Transfer Technique ambulated using FWW Transfer Ability Level of Assist Contact Guard Assistance, Minimal Assistance Comments Mobility Comments BP in supine: 164/80. pt completed supine to sit SBA with bed rail. pt stated that she uses the wall edge to assist her up of her bed at home. pt was able to sit on EOB SBA and completed sit to stand CGA to min A and cues. pt ambulated to the toilet using FWW CGA to min A and cues for safety and steadiness . pt completed sit to stand from the toilet CGA with use of grab bar and FWW. pt ambulated out of the toilet using FWW CGA to min A. agreed to sit up on chair. positioned on chair. call light and table placed wtihin reach. ice pack provided. informed nurse regarding pt's mobility. Gait Assessment Gait Gait Assistance Required: Contact Guard Assist,Minimum Assistance Distance (Feet) 15 Able to Maintain Weight Bearing Status Yes During Gait Assistive Devices Assistive Device Gait Belt,Front Wheeled Walker Orthotic/Prosthetic Devices or Brace: No Gait Deviations General Gait Pattern Antalgic,Decreased Stride Length,Decreased Feet Clearance,Step-to Gait Factors Limiting Gait Function Factors Limiting Gait Function Decreased Activity Tolerance, Decreased Strength,Limited Range of Motion,Pain,Poor Balance Comments Gait Comments completed 15 ft x 2 using FWW CGA to min A and cues. PT-Balance Assessment Sitting Balance and Reactions Static Sitting Balance Ability Good Dynamic Sitting Balance Ability Good Standing Balance and Reactions Static Standing Balance Ability Fair Dynamic Standing Balance Ability Fair Device Used FWW M5 PT-IP Objective Assessments Start: 07/29/19 15:31 Freq: NEEDED Status: Active Protocol: Document 07/29/19 14:44 AB (Rec: 07/29/19 15:47 AB [id number]) Orientation Orientation/Cognition Level of Alertness Alert Orientation Name,Place,Situation Language Function Ability No Deficits Noted Memory Description No Deficits Noted Gross Range of Motion Lower Extremity ROM Impairments L knee tightness with PROM L knee flexion: ~ 80 deg L knee extension: ~ 15 deg less to 0 Strength Lower Extremity Strength Assessment Within Functional Limits Coordination Assessment Gross Coordination Gross Coordination WNL Sensation Assessment Sensation Gross Sensation WNL Muscle Tone Muscle Tone WNL Yes M6 PT-IP Treatment Start: 07/29/19 15:31 Freq: NEEDED Status: Active Protocol: Document 07/29/19 14:44 AB (Rec: 07/29/19 15:47 AB [id number]) Physical Therapy Treatment Exercises Exercises Heel Slides,Straight Leg Raises Education Education Provided Precautions,Weight Bearing Status,Post-Op Packet,Safety M7 PT-IP Assessment and Plan Start: 07/29/19 15:31 Freq: NEEDED Status: Active Protocol: Document 07/29/19 14:44 AB (Rec: 07/29/19 15:47 AB [id number]) PT Summary Assessment and Plan Potential Rehabilitation Potential Good Status of Condition at Evaluation Stable Summary Impairments Pain,ROM,Strength,Balance,Bed Mobility,Transfers,Gait, Activity Tolerance Assessment Summary pt requiring CGA to min A with mobility using FWW. PT stated that her camper house is small and a FWW will not fit in. Will assess mobility next tx session using SPC and also has to complete stair climbing training . will conduct caregiver training when appropriate. pt will also need outpt PT. pt plans to go home and stated that her spouse will be able to assist her. Goals Bed Mobility Goal Independent Transfer Goal Independent,Cane Gait Goal Standby Assistance,Cane Gait Distance 50 Other Goals up/down 3 steps L handle R SPC CGA Days to Meet Goals 5 Frequency of Treatment Frequency Of Treatment Twice a Day Treatment Plan Physical Therapy Treatment Plan Bed Mobility Training,Transfer Training,Gait Training, Therapeutic Exercise,Balance Retraining,Post Op Education, Discharge Planning,Hot or Cold Pack,Neuromuscular Re-ed, Coordination Retraining,Manual Therapy Other Recommendations and Next Treatment ambulation using SPC, stair Focus climbing, caregiver training Recommendations To Nursing Amount of Assist Needed 1 Person Assist Discharge Recommendations PT Discharge Recommendations Home with Assistance, Outpatient PT Transportation Needs at Discharge Private Vehicle
[2019-07-29] MEDS: ACETAMINOPHEN 325 MG TABLET 650 MG PO ×2 (16:45→20:43)
[2019-07-29] MEDS: GABAPENTIN 300 MG CAPSULE 600 MG PO (16:46)
--- NOTE | 2019-07-29 17:13 | PC.NURSE ---
Addendum entered by Elena Loera R.N. 07/29/19 22:49: Able to void without difficulty in bathroom with standby assist and walker. Continues to deny pain. Ino wrap to left knee dry and intact. Ice to site. BL calf scd's in place. Pt places own cpap with assistance by staff for set up. Continuous pulse oximeter in place. Original Note: Pt up with P.T. and into recliner @ beginning of shift. P.T. states pt felt as though needed to void without success. Returned to bed and bladder scanned for between 500-600 cc's. Pt agreeable to straight cath and this was done with return of 1000 cc's clear, yellow urine. Pt reports immediate relief. Denies pain to left knee. Ino wrap dry and intact to left knee. Pt admits to full sensation to BL LE's stating buttocks is numb. Pt denies nausea. Appropriate mentation and conversation. Dr. Veloz has seen pt this evening shift.
[2019-07-29] MEDS: SITAGLIPTIN 50 MG TABLET PO (20:42)
[2019-07-29] MEDS: METFORMIN HCL 500 MG TABLET 1000 MG PO (20:43)
[2019-07-29] MEDS: ASPIRIN EC 81 MG TABLET PO (20:43)
[2019-07-30] MEDS: IBUPROFEN 400 MG TABLET PO ×4 (00:17→14:36)
[2019-07-30] MEDS: CEFAZOLIN 2 GM/100 ML FROZ.PIGGY IV (00:18)
[2019-07-30 00:34] VITALS: BP 131/68; PULSE 83; RESP 16; TEMP 36.2; O2SAT 96
[2019-07-30] MEDS: OXYCODONE IR 5 MG TABLET PO ×3 (05:21→14:35)
[2019-07-30 05:34] VITALS: BP 117/61; PULSE 84; RESP 16; TEMP 36.3; O2SAT 98
[2019-07-30 05:59] LABS: Hemoglobin 11.5 g/dL (12.0-16.0)
[2019-07-30 09:17] VITALS: BP 140/65; PULSE 95; RESP 18; TEMP 37; O2SAT 95
[2019-07-30 09:19] VITALS: BP 140/65; PULSE 94
[2019-07-30] MEDS: SITAGLIPTIN 50 MG TABLET PO (09:19)
[2019-07-30] MEDS: ENALAPRIL 20 MG TABLET PO (09:19)
[2019-07-30] MEDS: hydroCHLOROthiazide 25 MG TABLET PO (09:20)
[2019-07-30] MEDS: METFORMIN HCL 500 MG TABLET 1000 MG PO (09:20)
[2019-07-30] MEDS: GABAPENTIN 300 MG CAPSULE 600 MG PO ×2 (09:20→14:36)
[2019-07-30] MEDS: ASPIRIN EC 81 MG TABLET PO (09:20)
[2019-07-30] MEDS: SERTRALINE 50 MG TABLET 100 MG PO (09:21)
[2019-07-30] MEDS: DOCUSATE 100 MG CAPSULE PO (09:21)
[2019-07-30] MEDS: ACETAMINOPHEN 325 MG TABLET 650 MG PO ×2 (09:21→14:36)
[2019-07-30 09:46] VITALS: PULSE 68; RESP 14; O2SAT 98
--- NOTE | 2019-07-30 10:11 | PT.IPTN ---
Current Diagnoses Unilateral primary osteoarthritis, left knee (07/29/19) Surgery Performed Operation Date: 07/29/19 07:45 Actual Procedures p Total Knee Arthroplasty(Left) - Danii Veloz MD Physical Therapy Treatment Note M2 PT-IP Current Condition Start: 07/29/19 15:31 Freq: NEEDED Status: Active Protocol: Document 07/29/19 14:44 AB (Rec: 07/29/19 15:47 AB [id number]) Physical Therapy Current Condition Current Condition Evaluation Date 07/29/19 Treatment Diagnosis s/p L TKA; difficulty in walking Onset Date 07/29/19 Weight Bearing Status Weight Bearing Status Weight Bear as Tolerated Allowed Weight Bearing Amount (enter % LLE WBAT or #) (%) M3 PT-IP Subjective Start: 07/29/19 15:31 Freq: NEEDED Status: Active Protocol: Document 07/30/19 10:11 CLB (Rec: 07/30/19 12:46 CLB [id number]) Subjective Physical Therapy Visit Type Type Treatment Note Visit Start Time 10:11 Visit Stop Time 10:48 Total Visit Minutes 37 Number of APPLIANCE TECHNICIAN Visits 1 Physical Therapy Visit Comments Patient Comments pt agreeable to do PT Therapy Pain Assessment Pain When Pain Assessed During Mobility Pain Present Pain Present Pain Reported Location Left Knee Intensity 2 Scale Used Numeric (1 - 10) Pain Management Techniques Apply Cold,Re-positioning, Timing of Activity with Medications M4 PT-IP Mobility and Gait Start: 07/29/19 15:31 Freq: NEEDED Status: Active Protocol: Document 07/30/19 10:11 CLB (Rec: 07/30/19 12:46 CLB [id number]) PT-Bed Mobility Assessment Sit to Supine Sit to Supine Standby Assistance PT-Transfer Assessment Sit to and From Stand Sit to and from Stand Standby Assistance,1 Person Assistance,Use of Upper Extremities Equipment Transfer Assistive Device Gait Belt,Front Wheeled Walker Orthotic/Prosthetic Devices or Brace: No Transfers Transfer Destination Bed,Wheelchair Transfer Ability Level of Assist Standby Assistance,Contact Guard Assistance Comments Mobility Comments Pt stood SBA and ambulated ~ 60ft, pt then sat in WC and was able to manage WC independently to stairs, pt successfully climbed stairs requiring CGA. Pt then returned to WC requiring SBA. Pt was able to get into bed SBA being able to manage LLE independently. Pt performed ther ex in bed. Pt was left in bed with all needs within reach and alarm on. Gait Assessment Gait Gait Assistance Required: Standby Assistance,1 Person Assist Distance (Feet) 60 Able to Maintain Weight Bearing Status Yes During Gait Assistive Devices Assistive Device Gait Belt,Front Wheeled Walker Gait Deviations General Gait Pattern Antalgic,Decreased Stride Length,Decreased Feet Clearance Factors Limiting Gait Function Factors Limiting Gait Function Decreased Activity Tolerance, Decreased Strength,Limited Range of Motion,Pain,Poor Balance Comments Gait Comments Pt improved with gait this session able to ambulate ~60ft with FWW using small step through gait pattern, steady with good safety awareness. Stair Climbing Assessment Evaluation Level of Assist On Stairs Contact Guard Assistance,1 Person Assistance Devices Stair Climbing Assistive Devices Straight Cane,Right Railing Technique/Endurance Stair Climbing Direction Ascend and Descend Stair Climbing Technique Step to Step Number of Steps Climbed 3 Stair Climbing Set # Repetitions (reps) 1 Comments Stair Climbing Comments Pt climbed stairs with CGA going up stairs forward and down stairs backwards. PT-Balance Assessment Sitting Balance and Reactions Static Sitting Balance Ability Good Dynamic Sitting Balance Ability Good Standing Balance and Reactions Static Standing Balance Ability Fair Dynamic Standing Balance Ability Fair Device Used FWW M5 PT-IP Objective Assessments Start: 07/29/19 15:31 Freq: NEEDED Status: Active Protocol: Document 07/29/19 14:44 AB (Rec: 07/29/19 15:47 AB [id number]) Orientation Orientation/Cognition Level of Alertness Alert Orientation Name,Place,Situation Language Function Ability No Deficits Noted Memory Description No Deficits Noted Gross Range of Motion Lower Extremity ROM Impairments L knee tightness with PROM L knee flexion: ~ 80 deg L knee extension: ~ 15 deg less to 0 Strength Lower Extremity Strength Assessment Within Functional Limits Coordination Assessment Gross Coordination Gross Coordination WNL Sensation Assessment Sensation Gross Sensation WNL Muscle Tone Muscle Tone WNL Yes M6 PT-IP Treatment Start: 07/29/19 15:31 Freq: NEEDED Status: Active Protocol: Document 07/30/19 10:11 CLB (Rec: 07/30/19 12:46 CLB [id number]) Physical Therapy Treatment Exercises Exercises Ankle Pumps,Quad Sets,Heel Slides,Straight Leg Raises, Short Arc Quads Education Education Provided Precautions,Weight Bearing Status,Post-Op Packet,Safety M7 PT-IP Assessment and Plan Start: 07/29/19 15:31 Freq: NEEDED Status: Active Protocol: Document 07/30/19 10:11 CLB (Rec: 07/30/19 12:46 CLB [id number]) PT Summary Assessment and Plan Potential Rehabilitation Potential Good Status of Condition at Evaluation Stable Summary Impairments Pain,ROM,Strength,Balance,Bed Mobility,Transfers,Gait, Activity Tolerance Assessment Summary Pt is requiring less assist with sit<>stand and gait this session. Pt was able to climb stairs with cane and right rail with CGA. Pt is able to perform all knee ther ex independently. Pt seems able to d/c home with assist when medically stable. Goals Bed Mobility Goal Independent Transfer Goal Independent,Cane Gait Goal Standby Assistance,Cane Gait Distance 50 Other Goals up/down 3 steps L handle R SPC CGA Days to Meet Goals 5 Frequency of Treatment Frequency Of Treatment Twice a Day Treatment Plan Physical Therapy Treatment Plan Bed Mobility Training,Transfer Training,Gait Training, Therapeutic Exercise,Balance Retraining,Post Op Education, Discharge Planning,Hot or Cold Pack,Neuromuscular Re-ed, Coordination Retraining,Manual Therapy Other Recommendations and Next Treatment ambulation using SPC, stair Focus climbing, caregiver training Recommendations To Nursing Amount of Assist Needed 1 Person Assist Discharge Recommendations PT Discharge Recommendations Home with Assistance, Outpatient PT Transportation Needs at Discharge Private Vehicle
--- NOTE | 2019-07-30 11:47 | PC.NURSE ---
PATIENT CLEARED FOR DC HOME BY PHYSICAL THERAPY. TOLERATING PAIN LEVELS. STEADY ON FEET, 1P SBA W/ FWW.
[2019-07-30 12:00] VITALS: BP 138/61; PULSE 61; RESP 16; TEMP 36.6; O2SAT 94
--- NOTE | 2019-07-30 12:15 | CM.DANOTE ---
Discharge Planning/Care Management DCP: assessment: case received, EMR reviewed and met with pt. Introduced self and role. Pt is a 68 year old female who admitted yesterday for a planned L TKA. Surgeon: Dr. Camilo Veloz Payer: Medicare and [facility] PCP: Dr. Sury Shen Pt has just worked with PT and been cleared now for the home setting. Dr. Veloz will be seeing her shortly. Pt confirms that she has uses a FWW with the therapy team but they know she is unable to use this in her small home. She says her plans to get her one and she will be using it when out of the home (along with her w/c). Pt plans OUTPT PT, she is not certain where this will be set up as COVID restrictions have limited the clinics that are open. She said her is working on this too. He will be here to pick her up, pending Dr. Veloz's d/c order, later today (he gets off work at 1700 and works in [place]. Pt says she feels very comfortable with her home plan, expected today. CM Discharge Assessment Start: 07/30/19 12:14 Freq: Status: Active Protocol: Document 07/30/19 12:14 ITV (Rec: 07/30/19 12:15 ITV [id number]) Discharge Planning Assessment Advance Directives? Yes History Provided By Patient,Medical Record Has Patient been admitted in last 30 No days? Prior Living Arrangements RV Comment small camper Household Members spouse Independent with ADL's Yes Is patient alert and oriented? 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 Patient Information Reviewed Via Chart Review Comment No pre-op labs/COVID testing identified at time of chart review Primary Care Provider Brown Shen Seen Specialist in Last 12 Months Yes Specialist Seen Orthopedist Primary Language Mosotho Account Support Specialist Required No Height 162.56 cm Weight 107.955 kg Body Mass Index (BMI) 40.8 Hx Anesthesia Reactions No Smoking Status Never smoker Pain Present Pain Reported Musculoskeletal Symptoms Difficulty Walking,Joint Pain Patient is completely paralyzed or No completely immobile Ambulatory Aid Furniture Prosthesis or Orthotic Device Wheelchair Mental Status Oriented to own ability Hx Sleep Apnea Yes CPAP/BIPAP use prescribed and used routinely Will Bring CPAP/BIPAP DOS Yes Currently Taking a Beta Cookie No Anti-Coagulant Therapy No Hx Pacemaker/ICD No Pacemaker Rep Required? No Gastrointestinal Symptoms Fecal Incontinence Urinary Catheter Present No Hx Urinary Self Catheterization No Diabetes Yes HgbA1C 6.6 Date 02/06/19 Patient No Lactating No Have you had any close contact with Unknown, chart review only someone diagnosed with COVID-19? 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 NO BLOOD PRODUCTS Advance Directives? 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 No Gastrointestinal Symptoms Fecal Incontinence Urinary Catheter Present No Hx Urinary Self Catheterization No Diabetes Yes HgbA1C 7.4 Date 07/27/19 Comment Blood glucose 290 07/27/19 Patient No Lactating No Have you had any close contact with Unknown, chart review only someone diagnosed with COVID-19? 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 NO BLOOD PRODUCTS Advance Directives? No
--- NOTE | 2019-07-30 12:43 | PM.DS.1 ---
History of Present Illness History of Present Illness Date Patient Seen: 07/30/19 Time Patient Seen: 12:44 Chief complaint: 32170 LEFT TKA *OPB* Narrative: Senait had severe left greater than right knee osteoarthritis. She was brought to the operating room for a left total knee arthroplasty. She also has a history of diabetes. Discharge Providers Provider Discharge Date: 07/30/19 Primary care physician: Brown Shen DO Consults: 07/29/19 07:51 Consult to Anesthesiology Routine Comment: Consulting Provider: Anesthesiologist Reason for consultation: Regional block for post operative pain control 07/29/19 11:51 Consult to Discharge Planning Routine Comment: Consult to Physical Therapy Evaluate & Treat Comment: Physician Instructions: postop TKA protocol Consult to Respiratory Therapy Evaluate & Treat Comment: Physician Instructions: Evaluate and treat Discharge provider: Danii Veloz MD Summary Hospital Course Discharge Diagnosis: Left knee osteoarthritis, left total knee arthroplasty, diabetes Hospital Course: She is brought to the operating room she underwent a left total knee arthroplasty. She tolerated the procedure well. She was mobilized with physical therapy and did well with ambulation. She was discharged to home with her with a plan for outpatient physical therapy. Status at Discharge Cognitive/behavioral status at discharge: oriented Functional status at discharge: uses cane/walker Overall status at discharge: patient is back to baseline Time Spent with Patient Time spent: Less than 30 minutes Exam Vital Signs (past 8 hours): - 07/30/19 05:34 07/30/19 09:17 07/30/19 09:19 Temperature 97.4 F L 98.6 F Pulse Rate 84 95 H 94 H Respiratory Rate 16 18 Blood Pressure 117/61 140/65 140/65 Pulse Oximetry 98 95 07/30/19 09:46 07/30/19 12:00 Temperature 97.8 F Pulse Rate 68 61 Respiratory Rate 14 16 Blood Pressure 138/61 Pulse Oximetry 98 94 Oxygen Delivery Method Room Air Oxygen Flow Rate 0 Narrative Exam Narrative: Dressing is dry, calf is soft bilaterally, able to do straight leg raise neurologically intact distally, alert oriented and very comfortable. Objective Labs Result Diagrams: 07/30/19 05:45 Labs: Laboratory Results - last 24 hr 07/30/19 05:45 Hgb 11.5 L Hct 33.0 L Discharge Plan Discharge Plan Patient Disposition: Home Discharge comment: When safe with physical therapy Discharge Med Rec/Prescriptions Prescriptions: New polyethylene glycol 3350 17 gram Powder In Packet 17 gm PO DAILY PRN (Reason: Constipation) Qty: 30 RF: 0 oxycodone 5 mg Tablet 5 mg PO Q3HR PRN (Reason: Pain, Moderate (4-6)) Qty: 40 RF: 0 Continued gabapentin 300 mg capsule 600 mg PO TID Qty: 540 RF: 1 Bydureon 2 mg/0.65 mL pen injector 2 mg SUBCUT Q7D Qty: 12 RF: 0 sertraline 100 mg tablet 100 mg PO DAILY Qty: 90 RF: 1 enalapril maleate 20 mg tablet 20 mg PO DAILY Qty: 90 RF: 1 Janumet 50-1,000 mg tablet 1 tab PO BID Qty: 120 RF: 0 cholecalciferol (vitamin D3) 50,000 unit capsule 50,000 unit PO QWEEK Qty: 8 RF: 0 hydrochlorothiazide 25 mg Tablet 25 mg PO DAILY RF: 0 Discharge Orders: Discharge (Order); Ordered 07/30/19 Ordered By: Danii Veloz Provider Discharge Instructions Diet: Diet as Tolerated Activity: Use walker as needed okay to put full weight on the leg Cold/Heat Therapy: Ice at least 3 times a day Other treatments: Ambulate multiple times a day. Weightbearing as tolerated on the leg. Skin/Wound/Dressing Care Report to your healthcare provider any signs of infection, such as:: chills, fever, night sweats, increased pain, unusual drainage and unusual redness Dressing: Keep dressing on, okay to shower Visit Report/Discharge Packet Instructions: DI for Knee Replacement Stand Alone Forms: Surgery Discharge Discharge Data Primary Care Provider: Brown Shen Attending Provider: Danii Veloz
--- NOTE | 2019-07-30 16:06 | PC.NURSE ---
Addendum entered by Elena Loera R.N. 07/30/19 17:03: Pt showered with little assistance per TUBE REPAIRER. Able to dress self with assistance with lower body dressing per TUBE REPAIRER. Pt left hospital in stable condition with TUBE REPAIRER escort via wheelchair to meet spouse at entrance to hospital. Original Note: Pt awake and alert in bed with cpap in place. Expresses desire to discharge as ordered by MD. Reports ride will arrive around 1700. Pt desires assistance to shower. IV dc'd intact and TUBE REPAIRER in to assist pt with this task. Pt denies dizziness when up. Ino wrap removed left knee and aquacel dressing is dry and intact. Discharge instructions provided to pt in written and verbal format. Prescriptions provided to pt. Questions answered as appropriate. All personal belongings accounted for and in pt's possession.
== END 2019-07-30 17:02 | disposition home or self-care (01) ==
LOC: OR 06:45 → AC 11:02
PROVIDERS: PCP Family Medicine; Referring Provider Internal Medicine; Visit Provider Orthopaedic Surgery
PROC: 0SRD0JZ Replacement of Left Knee Joint with Synthetic Substitute, Open Approach (ICD-10-PCS; CPT 27447; principal; 2019-07-29 07:45)
DX: M17.12 Unilateral primary osteoarthritis, left knee (principal); E11.9 Type 2 diabetes mellitus without complications; I10 Essential (primary) hypertension; Z79.84 Long term (current) use of oral hypoglycemic drugs; G47.33 Obstructive sleep apnea (adult) (pediatric)
CPT/HCPCS: 27447; 36415; 73560; 82962; 85014; 85018; 94762; 97110; 97116; 97161; 97530; C1776; C9290; J0690; J1100; J2250; J2274; J2405; J2704; J3010

== ENCOUNTER → 2019-09-22 17:39 | Outpatient (CLI) | payer MEDICARE, OTHER, SELFPAY ==
[2019-07-29 13:54] VITALS: BMI 39.6
[2019-09-22 18:02] LABS: Add Manual Diff / Slide Review NO; Basophils Absolute Auto 0 /uL (0-100); Basophils Percent Auto 0.5 % (0-2); Eosinophils Absolute Auto 200 /uL (0-450); Eosinophils Percent Auto 2.2 % (2-4); Hematocrit 34.4 % (36-46); Hemoglobin 11.6 g/dL (12.0-16.0); Lymphocytes Absolute Auto 2900 /uL (1100-4500); Lymphocytes Percent Auto 38.2 % (25-40); Mean Corpuscular HGB Conc 33.8 % (30-36); Mean Corpuscular Hemoglobin 29.7 PG (26-34); Mean Corpuscular Volume 87.7 fL (80-100); Monocytes Absolute Auto 500 /uL (0-900); Neutrophils Absolute Auto 3900 /uL (1500-7000); Neutrophils Percent Auto 52.1 % (50-75); Platelet Count 409 X10^3/uL (150-400); Red Blood Cell Count 3.92 X10^6/uL (4.0-5.2); Red Cell Distribution Width 14.1 % (11.6-14.8); White Blood Cell Count 7.5 X10^3/uL (4.5-11.0)
[2019-09-22 19:18] LABS: Hemoglobin A1C% w Est Avg Glu 7.2 % (4.0-6.0)
== END ==
PROVIDERS: PCP Family Medicine; Referring Provider Orthopaedic Surgery; Visit Provider Orthopaedic Surgery
DX: Z01.812 Encounter for preprocedural laboratory examination (principal); R73.9 Hyperglycemia, unspecified
CPT/HCPCS: 36415; 83036; 85025

== ENCOUNTER → 2019-09-25 15:20 | Outpatient (CLI) | payer MEDICARE, OTHER, SELFPAY ==
[2019-07-29 13:54] VITALS: BMI 39.6
[2019-09-28 07:23] LABS: COVID19 Sendout Not Detected (Not Detect)
== END ==
PROVIDERS: PCP Family Medicine; Visit Provider Physician Assistant
DX: Z01.818 Encounter for other preprocedural examination (principal)
CPT/HCPCS: 87635

== ENCOUNTER 2019-09-28 09:32 | Day surgery (SDC) | payer MEDICARE, OTHER, SELFPAY ==
[2019-07-29 13:54] VITALS: BMI 39.6
[2019-09-20 11:37] VITALS: BMI 38.2
[2019-09-28] VITALS (12 sets, daily range): BP systolic 116–158; BP diastolic 62–88; PULSE 86–97; RESP 10–20; TEMP 36.5–37.2; O2SAT 89–100; BMI 38.2
--- NOTE | 2019-09-28 | DI.RAD.S_ITS ---
PROCEDURE: XR KNEE RT 1TO2V INDICATIONS: TOTAL RIGHT KNEE TECHNIQUE: 2 views of the knee were acquired. COMPARISON: [facility], , XR KNEE LT 1TO2V, 07/29/2019, 10:22. FINDINGS: Bones: Status post right knee arthroplasty. There is expected postoperative alignment. No fracture Overlying postsurgical soft tissue changes IMPRESSION: Expected postoperative alignment. Dictated by: Nigel Coulter M.D. on 09/28/2019 at 16:21 Approved by: Nigel Coulter M.D. on 09/28/2019 at 16:22
[2019-09-28] MEDS: LACTATED RINGERS 1,000 ML 42 ML IV ×2 (10:02→14:27)
[2019-09-28] MEDS: ACETAMINOPHEN 325 MG TABLET 975 MG PO (10:02)
[2019-09-28] MEDS: CELECOXIB 200 MG CAPSULE PO (10:03)
[2019-09-28] MEDS: PREGABALIN 75 MG CAPSULE PO (10:03)
[2019-09-28] MEDS: VANCOMYCIN 1,000 MG/200 ML PIGGYBACK 200 MG IV (12:18)
--- NOTE | 2019-09-28 13:05 | PM.PREOP ---
Pre-operative Note COVID-19 COVID-19 status: Negative Interval Note History & Physical reviewed/Exam performed by Physician: Yes Changes to H&P: No
--- NOTE | 2019-09-28 13:06 | PM.OP.1 ---
Operative Date/Time/Diagnoses Date of procedure: 09/28/19 Time of procedure: 13:34 Pre-op diagnosis: Right knee OA Post-op diagnosis: same Procedure & Clinicians Procedure: Right total knee arthroplasty Same procedure as scheduled: Yes Indications: The patient has had progressively worsening right knee pain with radiographic changes consistent with arthritis. Non-operative management has failed and the patient has requested total knee replacement. The risks, benefits and alternatives to surgery were discussed with the patient prior to proceeding. Risks discussed included, but were not limited to, failure to relieve pain, stiffness, infection, nerve damage, deep venous thrombosis, pulmonary embolism, stroke, coma, heart attack, permanent paralysis and , as well as the potential need for eventual revision of the prosthetic. Surgeon: Danii Veloz Raw Stock Machine Feeder: Norberto Stern Anesthesia Type: General and Spinal Operative Notes Findings: Severe right knee osteoarthritis, good stability, adequate bone Closure Type: primary Specimen(s): none sent Prosthetic devices, grafts, tissues, transplants, or devices: Veloz and Nephew [facility] 2 size 4 femur, size 4 tibia, +10 poly, 35 x 7.5 mm patella Estimated Blood Loss (mL): 250 Blood products transfused: none Tourniquet time (min): 71 Procedure in detail: The patient was seen in the pre-operative area, where the patient identified the right knee as the operative site and this was marked with my initials. The patient received pre-operative antibiotics, and was taken to the operating room and placed on the operative table in the supine position. After satisfactory anesthesia, a sprinkler fitter helper out was performed. The right leg was encircled with a tourniquet about the proximal thigh, and the leg was prepared from the toes to the tourniquet with ChloroPrep in the usual fashion and draped through sterile drapes. The leg was elevated and exsanguinated with Eschmark bandage and the tourniquet inflated to [250] mmHg pressure. The knee was approached through an approximately 18 cm incision centered over the patella and carried into the knee through a medial parapatellar arthrotomy. A portion of the medial and lateral meniscus was resected. Soft tissue was carefully mobilized around the patella the patella was measured with a caliper. Bone was resected from the patella and the patellar height was reconstituted with up an appropriate sized patellar component. A cover was then placed on the patella. A small amount of additional medial and lateral meniscus was resected. The distal femur was cut at 5?. A [+2] cut was used. It looked like an appropriate distal femoral cut and the cut was made without difficulty. An extramedullary guide was used for the tibial cut. 10 mm was resected off the least affected side.The tibia was prepared. The rotation was assessed. The patient was placed in extension residual medial and lateral meniscus as well as any residual bone was carefully resected. [No] additional tibia was resected. Hemostasis was achieved especially posteriorly. Additional local was injected into the posterior capsule. The extension gap was assessed and additional releases for gap balancing were performed as necessary. It was checked with the gap salesperson pets and pet supplies. The gap salesperson pets and pet supplies and 3? of fixed external rotation basically resulted in the same holes. The femoral component was trial was placed and the notch was finished. The rotation was assessed and the appropriate size femoral guide was placed on the distal femur and finishing cuts were made. There was no evidence of notching. The anterior, posterior and chamfer cuts were then made. The posterior osteophytes and soft tissues were then removed. The posterior capsule was injected with part of a mixture of 60 ml 0.25% Marcaine mixed with 20 ml Exparel for post operative pain control. The remainder of this mixture was injected into the capsule and subcutaneous tissues during cement curing.l tibial and femoral components were then placed and the knee placed through a range of motion. Range of motion was [0-130], with good stability throughout the range. The trials were then removed, and the tibia was finished. The bone was prepared with pulsatile lavage, and dried with a sponge. Cement was applied and the final prosthetics placed. Excess cement was removed during and after cement curing. A brief Betadine soak was performed. After confirming there was no extruded cement posteriorly, the final tibial insert was placed. The knee was copiously irrigated and the tourniquet deflated. Hemostasis was obtained with the Bovie. A drain was placed and brought out superolaterally. The capsule was closed with interrupted nonabsorbable suture. The subcutaneous layer was closed with barbed sutures, and the skin with a running 3-0 V-Lock suture and Surgical glue. An Aquacel Ag dressing was applied and the patient was taken to recovery having tolerated the procedure well. Complications: none Post-operative Condition: stable Disposition: Acute Care Plan for aftercare: The patient will be maintained on a standard total knee replacement protocol with weight bearing as tolerated. The patient will receive aspirin and sequential compression devices for DVT prophylaxis. The patient will be discharged home when safe for the home environment.
[2019-09-28] MEDS: CEFAZOLIN 2 GM/100 ML FROZ.PIGGY IV ×2 (13:21→21:35)
[2019-09-28] MEDS: TRANEXAMIC ACID 1,000 MG VIAL 1000 MG INJ ×2 (13:51→14:29)
[2019-09-28] MEDS: BUPIVACAINE 0.25% W/ EPI 30 ML VIAL 60 ML INJ (13:51)
[2019-09-28] MEDS: BUPIVACAINE LIPOSOME 266 MG/20 ML VIAL INJ (13:51)
--- NOTE | 2019-09-28 15:48 | SUR.PHASEI ---
Received to PACU at 1527 after general anesthesia. Airway patent, self maintained. Report received from Dr Bruno and circulating RN. 1540 - Glucose per pt left arm, continuous monitoring = 141. Finger stick = 169. Dr Bruno notifed.
--- NOTE | 2019-09-28 16:41 | SUR.PHASEI ---
Report called to Jovanni March RN. Pt transferred to 213. at bedside. Received in room by Jovanni March. Bedside handoff given including pt continuous glucose monitor. Dressing remains D/I. Hemovac clampled. Phone/monitor and power cord given to . Wheel chair, CPAP, own bag in room.
[2019-09-28] MEDS: IBUPROFEN 400 MG TABLET PO ×2 (18:01→21:35)
[2019-09-28] MEDS: LACTATED RINGERS 1,000 ML 100 ML IV (18:02)
--- NOTE | 2019-09-28 21:18 | PC.NURSE ---
Patient with hemovac, unclamped at 1730. Stated draining shortly after getting unclamped.
[2019-09-28] MEDS: GABAPENTIN 300 MG CAPSULE 900 MG PO (21:28)
[2019-09-28] MEDS: DOCUSATE 100 MG CAPSULE PO (21:28)
[2019-09-28] MEDS: ACETAMINOPHEN 325 MG TABLET 650 MG PO (21:28)
[2019-09-28] MEDS: ASPIRIN EC 81 MG TABLET PO (21:28)
[2019-09-28] MEDS: ENALAPRIL 20 MG TABLET PO (21:29)
[2019-09-28] MEDS: SITAGLIPTIN METFORMIN 1 EACH PO (22:14)
[2019-09-28] MEDS: SERTRALINE 50 MG TABLET 100 MG PO (22:50)
--- NOTE | 2019-09-28 23:38 | PC.NURSE ---
Evening note: Arminda brought from PACU to rm 213, she was awake, oriented x 3 and to situation. Aquacel & joseph wrap drsg to R knee is CDI. Hemovac unclamped at 1730, with 50 ml sero-sang output since unclamped. Pt ambulated to BR, incontinent of loose BM on floor. Voided. Back to bed. CBG elevated at HS to 329, pt said it's because my brought me cake & I ate it. At 2120 when giving HS meds I realized that we did not have Juvanet in stock, and pharmacy labeled as pts own med. Because pharmacy is closed, I talked to Clarice Elias RN. She said that we did not have Januvia in night pharmacy, that patient would need to bring in own med. Spouse left to get patient's Juvanet from home, brought bottle back to hospital. Tonight's dose of 1 tab was given, bottle then locked in process server with note for pharmacy to ID in AM. I left pharmacy a voice mail telling them that the bottle is locked in patient's process server. I told Marcy KEATING RN about this and she knows it is in patient's process server. internet sales consultant aware of situation. Sink in room stopped working, patient moved to room 214.
[2019-09-29] MEDS: IBUPROFEN 400 MG TABLET PO ×4 (00:23→12:56)
--- NOTE | 2019-09-29 00:38 | PC.NURSE ---
Patient is alert and oriented. Breath sounds CTA with RA sat of 93%; using home CPAP for sleep. Is being monitored on continuous pulse oximetry. HRR. BP elevated at 144/78 but consistent with previous readings. Denies nausea. BT hypoactive but states she has passed flatus. Voiding without dysuria, frequency or urgency. Is able to move self in bed. Up to bathroom with walker and 1 assist; reports weakness in right leg. Aquacel dressing covered with joseph wrap to right knee is CDI; hemovac is intact and compressed. CMS intact bilaterally. Denies pain. Wearing bilateral calf SCD's. Fall risk score is high and bed alarm is activated.
[2019-09-29 03:20] VITALS: BP 137/74; PULSE 95; RESP 18; TEMP 36.6; O2SAT 96
[2019-09-29] MEDS: LACTATED RINGERS 1,000 ML 100 ML IV (04:23)
[2019-09-29] MEDS: CEFAZOLIN 2 GM/100 ML FROZ.PIGGY IV (04:25)
[2019-09-29 05:37] LABS: Hematocrit 30.1 % (36-46); Hemoglobin 10.2 g/dL (12.0-16.0)
[2019-09-29 08:00] VITALS: BP 145/92; PULSE 92; RESP 16; TEMP 36.9; O2SAT 96
[2019-09-29] MEDS: ASPIRIN EC 81 MG TABLET PO (08:08)
[2019-09-29] MEDS: ACETAMINOPHEN 325 MG TABLET 650 MG PO (08:08)
[2019-09-29] MEDS: GABAPENTIN 300 MG CAPSULE 600 MG PO (08:08)
[2019-09-29] MEDS: hydroCHLOROthiazide 25 MG TABLET PO (08:09)
[2019-09-29] MEDS: SITAGLIPTIN METFORMIN 1 EACH PO (08:09)
--- NOTE | 2019-09-29 09:27 | PT.IIE ---
Current Diagnoses Unilateral primary osteoarthritis, left knee (09/28/19) Surgery Performed Operation Date: 09/28/19 11:30 Actual Procedures p Total Knee Arthroplasty(Right) - Danii Veloz MD Surgical History (Last Updated 09/20/19 @ 11:43 by Mellisa Lutz RN) Anesthesia (Resolved) History of arthroplasty of left knee (Acute 07/29/19) History of cholecystectomy (Resolved ~06/1983) Medical History (Last Updated 09/20/19 @ 12:35 by Mellisa Lutz RN) Bilateral chronic knee pain (Acute) Bilateral primary osteoarthritis of knee (Acute) Chicken pox (Resolved) Diabetes (Acute) Diabetes mellitus type 2 in obese (Acute) Elevated lipase (Acute) Heavy menstrual period (Resolved) Hypertension (Acute) Hypertriglyceridemia (Acute) Low HDL (under 40) (Acute) Measles (Resolved) Osteoarthritis (Inactive) Painful menstrual periods (Resolved) Plantar warts (Acute) Polymyalgia rheumatica (Inactive) Presence of device (Acute) Rheumatoid arthritis (Inactive) Vitamin deficiency (Acute) Physical Therapy Inpatient Evaluation/Re-Eval M1 PT/OT-IP Prior Functional Status Start: 09/29/19 12:54 Freq: NEEDED Status: Active Protocol: Document 09/29/19 09:27 AB (Rec: 09/29/19 13:09 AB [id number]) Medical Review Prior Functional Status Medical History Reviewed Yes Communication able to make needs known Mobility and Gait pt stated that she is modified independent with all mobilities and ambulation: furniture walks inside her RV but uses a FWW for outdoor mobility Social History Household Members spouse Living Arrangements RV Number of Floors (Floors) One Floor Number of Stairs To Enter/Railing? 3 steps with L bar and pantry on R Home Environment Standard Height Toilet,Walk in Shower Home Equipment Front Wheel Walker,Shower Seat without Backrest,Hand Held Shower,Grab Bars Near Toilet Employment Status Retired M2 PT-IP Current Condition Start: 09/29/19 12:54 Freq: NEEDED Status: Active Protocol: Document 09/29/19 09:27 AB (Rec: 09/29/19 13:09 AB [id number]) Physical Therapy Current Condition Current Condition Evaluation Date 09/29/19 Treatment Diagnosis s/p R TKA; difficulty in walking Onset Date 09/28/19 Weight Bearing Status Weight Bearing Status Weight Bear as Tolerated Allowed Weight Bearing Amount (enter % RLE WBAT or #) (%) M3 PT-IP Subjective Start: 09/29/19 12:54 Freq: NEEDED Status: Active Protocol: Document 09/29/19 09:27 AB (Rec: 09/29/19 13:09 AB [id number]) Subjective Physical Therapy Visit Type Type Initial Evaluation Visit Start Time 09:27 Visit Stop Time 09:55 Total Visit Minutes 28 Number of PROGRAM PROPOSALS COORDINATOR Visits 0 Physical Therapy Visit Comments Patient Comments pt is agreeable to do PT Therapy Pain Assessment Pain Present Pain Present Denied Pain M4 PT-IP Mobility and Gait Start: 09/29/19 12:54 Freq: NEEDED Status: Active Protocol: Document 09/29/19 09:27 AB (Rec: 09/29/19 13:09 AB [id number]) PT-Bed Mobility Assessment Supine to Sit Supine to Sit Independent Sit to Supine Sit to Supine Independent PT-Transfer Assessment Sit to and From Stand Sit to and from Stand Standby Assistance,Use of Upper Extremities Equipment Transfer Assistive Device Gait Belt,Front Wheeled Walker Orthotic/Prosthetic Devices or Brace: No Transfers Transfer Destination Chair Transfer Technique ambulated using FWW Transfer Ability Level of Assist Standby Assistance Comments Mobility Comments pt stated that she just had TKA on her other knee ~ month ago . completed supine to sit modified indepedent. completed sit to stand SBA and ambulated using FWW ~ 200 ft SBA. pt completed up/down steps using bilateral rails SBA. pt stated that she has supports on B sides to assist her with stairs. pt ambulated back to her room 200 ft SBA using FWW. requested to go back to bed and completed sit to supine SBA. positioned pt inbed. call light and table placed within reach. Gait Assessment Gait Gait Assistance Required: Standby Assistance Distance (Feet) 200 Able to Maintain Weight Bearing Status Yes During Gait Assistive Devices Assistive Device Gait Belt,Front Wheeled Walker Orthotic/Prosthetic Devices or Brace: No Gait Deviations General Gait Pattern Antalgic,Decreased Stride Length,Decreased Feet Clearance Factors Limiting Gait Function Factors Limiting Gait Function Decreased Activity Tolerance, Decreased Strength,Limited Range of Motion,Poor Balance, Poor Safety Awareness Comments Gait Comments pls refer to mobility section for details Stair Climbing Assessment Evaluation Level of Assist On Stairs Standby Assistance Devices Stair Climbing Assistive Devices Left Railing,Right Railing Technique/Endurance Stair Climbing Direction Ascend and Descend Stair Climbing Technique Step to Step Number of Steps Climbed 3 Query Text: Stair Climbing Set # Repetitions (reps) 1 Comments Stair Climbing Comments pls refer to mobility section for details PT-Balance Assessment Sitting Balance and Reactions Static Sitting Balance Ability Good Dynamic Sitting Balance Ability Good Standing Balance and Reactions Static Standing Balance Ability Fair Dynamic Standing Balance Ability Fair Device Used FWW M5 PT-IP Objective Assessments Start: 09/29/19 12:54 Freq: NEEDED Status: Active Protocol: Document 09/29/19 09:27 AB (Rec: 09/29/19 13:09 [id number]) Orientation Orientation/Cognition Level of Alertness Alert Orientation Name,Place,Situation Safety Awareness Understands Safety Issues Memory Description No Deficits Noted Gross Range of Motion Lower Extremity ROM Assessment Within Functional Limits Strength Lower Extremity Strength Assessment Bilaterally Impaired Comments Strength Comments RLE: 3+/5 LLE: 4-/5 Coordination Assessment Gross Coordination Gross Coordination WNL Sensation Assessment Sensation Gross Sensation WNL Muscle Tone Muscle Tone WNL Yes M6 PT-IP Treatment Start: 09/29/19 12:54 Freq: NEEDED Status: Active Protocol: Document 09/29/19 09:27 AB (Rec: 09/29/19 13:09 AB [id number]) Physical Therapy Treatment Exercises Exercises Heel Slides Education Education Provided Precautions,Weight Bearing Status,Safety Other Treatments Other Treatment Performed pt does not want the post-op packet, stated that she still has her previous one from last surgery M7 PT-IP Assessment and Plan Start: 09/29/19 12:54 Freq: NEEDED Status: Active Protocol: Document 09/29/19 09:27 AB (Rec: 09/29/19 13:09 [id number]) PT Summary Assessment and Plan Potential Rehabilitation Potential Good Status of Condition at Evaluation Stable Summary Impairments Pain,ROM,Strength,Balance,Bed Mobility,Transfers,Gait, Activity Tolerance Assessment Summary pt requiring SBA with mobility and plans to go home with her spouse to assist her. pt stated that she just had her other knee done ~ 2 months ago and stated that she still knows what to do mobility and safety coello. pt stated that she is already set up for outpt PT. Pt may go home when medically stable. Goals Transfer Goal Independent,Front Wheeled Walker Gait Goal Independent,Front Wheel Walker Gait Distance 250 Other Goals up/down 3 steps L rail SBA Days to Meet Goals 5 Frequency of Treatment Frequency Of Treatment Twice a Day Treatment Plan Physical Therapy Treatment Plan Bed Mobility Training,Transfer Training,Gait Training, Therapeutic Exercise,Balance Retraining,Post Op Education, Discharge Planning,Hot or Cold Pack,Neuromuscular Re-ed, Coordination Retraining,Manual Therapy Other Recommendations and Next Treatment ambulation, gait training Focus Recommendations To Nursing Amount of Assist Needed Standby Assistance Discharge Recommendations PT Discharge Recommendations Home with Assistance, Outpatient PT Transportation Needs at Discharge Private Vehicle
--- NOTE | 2019-09-29 09:52 | PM.PNPO.1 ---
Subjective Subjective Date Patient Seen: 09/29/19 Time Patient Seen: 07:40 Interval history: Patient's pain is mild. Denies fever chills. No nausea vomiting. She has been up a couple times to use the restroom. She has not worked formally with physical therapy. Otherwise without complaints. Exam Vital Signs (past 8 hours): - 09/29/19 03:20 09/29/19 08:00 Temperature 97.8 F 98.4 F Pulse Rate 95 H 92 H Respiratory Rate 18 16 Blood Pressure 137/74 145/92 H Pulse Oximetry 96 96 Oxygen Delivery Method Room Air Oxygen Flow Rate 0 Narrative Exam Narrative: Pleasant 68-year-old female sitting up in bed having breakfast in no apparent distress. Right knee dressing is clean, dry and intact. Hemovac is in place. Motor functions intact distal right lower extremity. Right leg is warm and dry. Sensation grossly intact to light touch. Objective Labs Result Diagrams: 09/29/19 05:20 Labs: Laboratory Results - last 24 hr 09/29/19 05:20 Hgb 10.2 L Hct 30.1 L Assessment & Plan Post-op Postoperative Procedures: Procedures Operation Date: 09/28/19 11:30 Actual Procedures Side Surgeon p Total Knee Arthroplasty Right Danii Veloz MD Patient progressing as expected status post right total knee arthroplasty. Mobilize with physical therapy. Her is home to assist her. Likely discharge home today after physical therapy. Quality VTE Deep Vein Thrombosis/Pulmonary Embolism Present on Admission: No
[2019-09-29] MEDS: OXYCODONE IR 5 MG TABLET PO (10:21)
[2019-09-29 11:30] VITALS: BP 148/79; PULSE 92; RESP 16; TEMP 36.9; O2SAT 95
--- NOTE | 2019-09-29 11:57 | CM.DANOTE ---
Patient is a 68 year old female who was admitted on 09/28/19 for RTKA. Pt has [facility] and [facility] for insurance and her PCP is Dr. Shen. EMR was reviewed. Per Ortho PA, pt tolerated surgery well and pending PT and pain today could be ready for d/c home this evening or tomorrow. SW met bedside with pt just as PT initial eval was completed and per PT pt was able to manage stairs and ambulation and recommendation of home with outpt PT. Pt confirms that she lives in a quite small RV/camper at [facility] in [place] with her spouse and is independent with ADL's at baseline. Pt confirms that she had LTKA two months ago and was successful in d/c home with spouse support and no needs. Pt states that her spouse is her DPOA and she brought in a copy for her chart and that her plan is to d/c back to RV and is a good cook and available for assist at d/c and RV is small enough that she can manage moving around it and feels confident with the two stairs to get in. Pt agreeable with d/c back to RV this evening or tomorrow when deemed medically stable. Pt denies any hx of HH or SNF. Plan: SW to follow for plan of d/c back to RV with spouse this evening or tomorrow and any further identified discharge planning needs. JERICA Morelos Discharge Planning/Care Management CM Discharge Assessment Start: 09/29/19 11:54 Freq: Status: Active Protocol: Document 09/29/19 11:56 BF (Rec: 09/29/19 11:57 BF [id number]) Discharge Planning Assessment Assigned Chili Maker JERICA Hollis DPOA/Assigned Designee Name Spouse Maikel Contact Information [phone] Advance Directives? Yes Advance Directives on File Yes History Provided By Patient,Medical Record Has Patient been admitted in last 30 No days? Prior Living Arrangements RV Household Members spouse Type of transporation used prior to Drives own vehicle admit Comment Lives in small RV with spouse and is independent with ADL's at baseline Independent with ADL's Yes Is patient alert and oriented? Yes Needs Assistance With Home Chores / Shopping Caregiver for Another No Community Services used prior to Physical Therapy admission: Patient/Family Preference OP PT Therapy Barriers to Discharge No Discharge Plan Home Community Services Physical Therapy Transportation Arrangement Spouse plans to provide transport at d/c either today or tomorrow Referrals Initiated None needed Whiteboard Updated in Patient Room with Yes name and ext. # of Chili Maker Review Status In Process Please Provide Date Initial DC 09/29/19 Assessment Was Performed Next Review Type Continued Stay Review
--- NOTE | 2019-09-29 14:27 | PC.NURSE ---
Pt is dressed and ready for discharge home with Spouse. Has worked with PT and has been cleared. Went over d/c instructions with Pt -discussed d/c meds, time of last dose, reviewed stroke education, and follow up. Pt denies further queistons and was taken out via w/c by NURSING STAFF DEVELOPMENT COORDINATOR to pov with Spouse and all belongings.
== END 2019-09-29 14:29 | disposition home or self-care (01) ==
LOC: OR 09:35 → AC 09:35
PROVIDERS: PCP Family Medicine; Referring Provider Orthopaedic Surgery; Visit Provider Orthopaedic Surgery
PROC: 0SRC0JZ Replacement of Right Knee Joint with Synthetic Substitute, Open Approach (ICD-10-PCS; CPT 27447; principal; 2019-09-28 11:30)
DX: M17.11 Unilateral primary osteoarthritis, right knee (principal); I10 Essential (primary) hypertension; G47.33 Obstructive sleep apnea (adult) (pediatric); E11.9 Type 2 diabetes mellitus without complications; Z79.84 Long term (current) use of oral hypoglycemic drugs
CPT/HCPCS: 27447; 36415; 73560; 82962; 85014; 85018; 97161; C1776; C9290; J0690; J1100; J2250; J2274; J2405; J2704; J3010

== ENCOUNTER → 2019-12-22 08:42 | Outpatient (CLI) | payer MEDICARE, OTHER, SELFPAY ==
[2019-09-28 17:17] VITALS: BMI 38.2
[2019-12-22 09:48] LABS: Add Manual Diff / Slide Review NO; Basophils Absolute Auto 0 /uL (0-100); Basophils Percent Auto 0.6 % (0-2); Eosinophils Absolute Auto 200 /uL (0-450); Eosinophils Percent Auto 2.5 % (2-4); Hemoglobin 11.6 g/dL (12.0-16.0); Lymphocytes Absolute Auto 2400 /uL (1100-4500); Lymphocytes Percent Auto 36.2 % (25-40); Mean Corpuscular HGB Conc 34.2 % (30-36); Mean Corpuscular Hemoglobin 29.4 PG (26-34); Mean Corpuscular Volume 85.9 fL (80-100); Monocytes Absolute Auto 400 /uL (0-900); Monocytes Percent Auto 6.7 % (3-14); Neutrophils Absolute Auto 3600 /uL (1500-7000); Platelet Count 342 X10^3/uL (150-400); Red Blood Cell Count 3.96 X10^6/uL (4.0-5.2); Red Cell Distribution Width 16.4 % (11.6-14.8); White Blood Cell Count 6.6 X10^3/uL (4.5-11.0)
[2019-12-22 10:12] LABS: Alanine Aminotransferase 12 IU/L (<35); Albumin 3.9 g/dL (3.5-5.0); Albumin Globulin Ratio 1.3 (1.0-2.8); Alkaline Phosphatase 88 U/L (38-126); Aspartate Aminotransferase 20 IU/L (14-36); BUN Creatinine Ratio 16.2 (6-22); Bilirubin Total 0.3 mg/dL (0.2-1.3); Blood Urea Nitrogen 24 mg/dL (7-17); Calcium 9.5 mg/dL (8.4-10.2); Carbon Dioxide 27 mmol/L (22-32); Chloride 105 mmol/L (98-107); Cholesterol 209 mg/dL (140-199); Estimated Glomerular Filt Rate 35.2 mL/min (>60); Globulin 3.1 g/dL (1.7-4.1); Glucose 183 mg/dL (80-110); HDL Cholesterol 38 mg/dL (40-60); HEMOLYSIS < 15 (0-50); Potassium 4.8 mmol/L (3.4-5.1); Sodium 138 mmol/L (137-145); Triglycerides 425 mg/dL (35-150)
[2019-12-22 10:34] LABS: Creatinine Urine Random 105.1 mg/dL
[2019-12-22 10:45] LABS: Vitamin D 25 Hydroxy (D3) 21.4 ng/mL (30.0-100.0)
[2019-12-22 10:58] LABS: Vitamin B12 223 pg/mL (239-931)
[2019-12-22 11:40] LABS: Microalbumi Creatinin Ratio Ur 6022.8 ug/mg CR (<30)
== END ==
PROVIDERS: PCP Family Medicine; Referring Provider Family Medicine; Visit Provider Family Medicine
DX: E11.9 Type 2 diabetes mellitus without complications (principal); E56.9 Vitamin deficiency, unspecified; E78.1 Pure hyperglyceridemia; E78.6 Lipoprotein deficiency; I10 Essential (primary) hypertension
CPT/HCPCS: 36415; 80053; 80061; 82043; 82306; 82570; 82607; 83036; 85025

== ENCOUNTER → 2020-11-11 12:17 | Outpatient (CLI) | payer MEDICARE, OTHER, SELFPAY ==
[2019-09-28 17:17] VITALS: BMI 38.2
[2020-11-11 13:16] LABS: Alanine Aminotransferase 18 IU/L (<35); Albumin 4.2 g/dL (3.5-5.0); Albumin Globulin Ratio 1.3 (1.0-2.8); Alkaline Phosphatase 86 U/L (38-126); Aspartate Aminotransferase 22 IU/L (14-36); BUN Creatinine Ratio 27.4 (6-22); Bilirubin Total 0.3 mg/dL (0.2-1.3); Blood Urea Nitrogen 48 mg/dL (7-17); Calcium 10.1 mg/dL (8.4-10.2); Carbon Dioxide 17 mmol/L (22-32); Chloride 109 mmol/L (98-107); Cholesterol 249 mg/dL (140-199); Globulin 3.3 g/dL (1.7-4.1); Glucose 167 mg/dL (80-110); HDL Cholesterol 43 mg/dL (40-60); HEMOLYSIS < 15 (0-50); Potassium 4.7 mmol/L (3.4-5.1); Sodium 138 mmol/L (137-145); Total Protein 7.5 g/dL (6.3-8.2); Triglycerides 484 mg/dL (35-150)
[2020-11-11 13:22] LABS: Hemoglobin A1C% w Est Avg Glu 6.8 % (4.0-6.0)
== END ==
PROVIDERS: PCP Family Medicine; Referring Provider Family Medicine; Visit Provider Family Medicine
DX: E11.21 Type 2 diabetes mellitus with diabetic nephropathy (principal); E78.1 Pure hyperglyceridemia; N18.31 Chronic kidney disease, stage 3a; R74.8 Abnormal levels of other serum enzymes; E78.6 Lipoprotein deficiency; I10 Essential (primary) hypertension
CPT/HCPCS: 36415; 80053; 80061; 83036

== ENCOUNTER → 2020-12-28 14:46 | Outpatient (CLI) | payer MEDICARE, OTHER, SELFPAY ==
[2019-09-28 17:17] VITALS: BMI 38.2
--- NOTE | 2020-12-28 14:48 | DI.RAD.S_ITS ---
PROCEDURE: XR ANKLE LT MIN 3V INDICATIONS: unrelieved ankle pain TECHNIQUE: 3 views of the ankle were acquired. COMPARISON: None. FINDINGS: Bones: Vague linear lucency traverses the distal fibula. Ankle mortise is normally aligned. No suspicious bony lesions. Soft tissues: No tibiotalar joint effusion. Achilles tendon appears normal. IMPRESSION: Possible healing/subacute distal fibular fracture. This could be further assessed with MRI, if clinically indicated. Dictated by: Karime Haro M.D. on 12/28/2020 at 15:58 Approved by: Karime Haro M.D. on 12/28/2020 at 15:58
--- NOTE | 2020-12-28 14:48 | DI.RAD.S_ITS ---
PROCEDURE: XR ANKLE RT MIN 3V INDICATIONS: unrelieved ankle pain TECHNIQUE: 3 views of the ankle were acquired. COMPARISON: None. FINDINGS: Bones: No fractures or dislocations. Ankle mortise is normally aligned. No suspicious bony lesions. Well-defined plantar calcaneal enthesophyte is seen. Soft tissues: Lateral ankle soft tissue swelling is seen. No tibiotalar joint effusion. Achilles tendon appears normal. IMPRESSION: Lateral ankle soft tissue swelling. No acute ankle fracture or dislocation. Calcaneal enthesophyte. Dictated by: Ernie Jang M.D. on 12/28/2020 at 16:40 Approved by: Ernie Jang M.D. on 12/28/2020 at 16:40
== END ==
PROVIDERS: PCP Family Medicine; Referring Provider Family Medicine; Visit Provider Family Medicine
DX: M25.571 Pain in right ankle and joints of right foot (principal); M25.572 Pain in left ankle and joints of left foot; M79.89 Other specified soft tissue disorders; M77.31 Calcaneal spur, right foot
CPT/HCPCS: 73610

== ENCOUNTER → 2022-11-12 13:42 | Outpatient (CLI) | payer MEDICARE, OTHER, SELFPAY ==
[2019-09-28 17:17] VITALS: BMI 38.2
[2022-11-12 14:29] LABS: Add Manual Diff / Slide Review NO; Basophils Absolute Auto 0 /uL (0-100); Basophils Percent Auto 0.3 % (0-2); Eosinophils Absolute Auto 300 /uL (0-450); Eosinophils Percent Auto 2.4 % (2-4); Hematocrit 35.6 % (36-46); Hemoglobin 12.2 g/dL (12.0-16.0); Lymphocytes Absolute Auto 2500 /uL (1100-4500); Lymphocytes Percent Auto 23.9 % (25-40); Mean Corpuscular HGB Conc 34.3 % (30-36); Mean Corpuscular Hemoglobin 30.5 PG (26-34); Mean Corpuscular Volume 89.2 fL (80-100); Monocytes Absolute Auto 500 /uL (0-900); Monocytes Percent Auto 4.5 % (3-14); Neutrophils Absolute Auto 7300 /uL (1500-7000); Neutrophils Percent Auto 68.9 % (50-75); Platelet Count 335 X10^3/uL (150-400); White Blood Cell Count 10.6 X10^3/uL (4.5-11.0)
[2022-11-12 14:40] LABS: Hemoglobin A1C% w Est Avg Glu 6.4 % (4.0-6.0)
[2022-11-12 14:50] LABS: BUN Creatinine Ratio 19.6 (6-22); Blood Urea Nitrogen 58 mg/dL (7-17); Calcium 9.6 mg/dL (8.4-10.2); Carbon Dioxide 17 mmol/L (22-32); Chloride 107 mmol/L (98-107); Estimated Glomerular Filt Rate 17 mL/min (>60); Glucose 170 mg/dL (80-110); HEMOLYSIS < 15 (0-50); Sodium 140 mmol/L (137-145)
[2022-11-12 15:14] LABS: Vitamin D 25 Hydroxy (D3) 65.9 ng/mL (30.0-100.0)
[2022-11-12 15:39] LABS: Vitamin B12 443 pg/mL (239-931)
== END ==
PROVIDERS: PCP Family Medicine; Referring Provider Family Medicine; Visit Provider Family Medicine
DX: E11.42 Type 2 diabetes mellitus with diabetic polyneuropathy (principal); E55.9 Vitamin D deficiency, unspecified; E53.8 Deficiency of other specified B group vitamins; N18.4 Chronic kidney disease, stage 4 (severe); I10 Essential (primary) hypertension
CPT/HCPCS: 80048; 82306; 82607; 83036; 85025

== ENCOUNTER → 2022-12-19 10:48 | Outpatient (CLI) | payer MEDICARE, OTHER, SELFPAY ==
[2019-09-28 17:17] VITALS: BMI 38.2
[2022-12-19 12:13] LABS: Hemoglobin A1C% w Est Avg Glu 6.8 % (4.0-6.0)
[2022-12-19 12:26] LABS: Alanine Aminotransferase 17 IU/L (<35); Albumin 3.9 g/dL (3.5-5.0); Albumin Globulin Ratio 1.3 (1.0-2.8); Alkaline Phosphatase 117 U/L (38-126); Aspartate Aminotransferase 20 IU/L (14-36); Bilirubin Total 0.2 mg/dL (0.2-1.3); Blood Urea Nitrogen 46 mg/dL (7-17); Calcium 9.4 mg/dL (8.4-10.2); Carbon Dioxide 18 mmol/L (22-32); Chloride 107 mmol/L (98-107); Cholesterol 128 mg/dL (140-199); Estimated Glomerular Filt Rate 17 mL/min (>60); Glucose 184 mg/dL (80-110); HDL Cholesterol 33 mg/dL (40-60); HEMOLYSIS < 15 (0-50); LDL Cholesterol Calculated 52 mg/dL (<100); Potassium 4.5 mmol/L (3.4-5.1); Sodium 139 mmol/L (137-145); Total Protein 6.9 g/dL (6.3-8.2); Triglycerides 217 mg/dL (35-150)
[2022-12-19 13:16] LABS: Creatinine Urine Random 73.3 mg/dL
[2022-12-19 21:29] LABS: Microalbumi Creatinin Ratio Ur 8963.1 ug/mg CR (<30)
[2022-12-20 18:56] LABS: Fecal Immunochemical Test Negative (Negative)
== END ==
PROVIDERS: PCP Family Medicine; Referring Provider Family Medicine; Visit Provider Family Medicine
DX: E11.42 Type 2 diabetes mellitus with diabetic polyneuropathy (principal); Z12.11 Encounter for screening for malignant neoplasm of colon; N18.4 Chronic kidney disease, stage 4 (severe); I10 Essential (primary) hypertension; E55.9 Vitamin D deficiency, unspecified; E53.8 Deficiency of other specified B group vitamins; E78.2 Mixed hyperlipidemia; I27.20 Pulmonary hypertension, unspecified; E11.22 Type 2 diabetes mellitus with diabetic chronic kidney disease; Z79.4 Long term (current) use of insulin
CPT/HCPCS: 36415; 80053; 80061; 82043; 82274; 82570; 83036